=== PATIENT | female | born 1975 | race Caucasian/White ===

== ENCOUNTER → 2022-12-31 08:47 | Outpatient (BNVA) | payer OTHER, SELFPAY | PROVIDERS: PCP Family Medicine; Visit Provider Physician Assistant ==

== ENCOUNTER → 2023-01-09 08:30 | Outpatient (BNVA) | payer OTHER, SELFPAY | PROVIDERS: PCP Family Medicine; Visit Provider Surgery ==

== ENCOUNTER 2023-01-25 08:40 | Outpatient (REF) | payer OTHER, SELFPAY ==
--- NOTE | ~2023-01-25 | XR_ITS ---
EXAMINATION: XR CHEST CLINICAL INFORMATION: Obesity COMPARISON: None available. TECHNIQUE: 2 views of the chest were obtained. FINDINGS: No significant abnormality is noted involving the heart, lungs, mediastinum, bony thorax or soft tissues. XR/XR chest 2V IMPRESSION: Unremarkable examination.
--- NOTE | 2023-01-25 08:48 | ECG_ITS ---
Test Reason : OBESITY Blood Pressure : / mmHG Vent. Rate : 071 BPM Atrial Rate : 071 BPM P-R Int : 152 ms QRS Dur : 088 ms QT Int : 408 ms P-R-T Axes : 043 041 025 degrees QTc Int : 443 ms Normal sinus rhythm Normal ECG No previous ECGs available Referred By: Charlie Smith Electronically Signed By:REYNALDO EMERY MD
[2023-01-25 09:03] LABS: MANUAL DIFF FLAG NO
[2023-01-25 09:31] LABS: Basophils Percent Auto 0.5 % (0-2); Eosinophils Absolute Auto 0.1 X10*3/uL (0.0-0.4); Eosinophils Percent Auto 1.5 % (0-4); Hematocrit 41.3 % (37.0-47.0); Hemoglobin 13.3 g/dl (12.0-16.0); Imm Gran Abs Auto 0.01 X10*3/uL (0.00-0.03); Imm Gran Pct Auto 0.2 % (0.0-0.4); Lymphocytes Absolute Auto 1.8 X10*3/uL (1.2-4.9); Lymphocytes Percent Auto 33.5 % (20-40); Mean Corpuscular HGB Conc 32.2 g/dl (31.0-35.0); Mean Corpuscular Hemoglobin 27.4 pg (27.0-33.0); Mean Platelet Volume 9.1 fL (9.4-12.3); Monocytes Absolute Auto 0.4 X10*3/uL (0.1-1.2); Monocytes Percent Auto 6.4 % (2-11); Neutrophils Absolute Auto 3.2 x10*3/uL (2.0-8.3); Neutrophils Percent Auto 57.9 % (45-73); Platelet Count 306 X10*3/uL (160-400); Red Blood Count 4.86 X10*6/uL (4.20-5.50); White Blood Count 5.5 X10*3/uL (4.8-10.8)
[2023-01-25 10:12] LABS: Estimated Average Glucose 103 mg/dL; Hemoglobin A1c % 5.2 %
[2023-01-25 10:22] LABS: Alanine Aminotransferase 33 U/L (0-31); Albumin Level 4.3 g/dL (3.5-5.0); Alkaline Phosphatase 75 U/L (39-117); Anion Gap 14 (12-20); Aspartate Amino Transferase 32 U/L (5-31); Bilirubin Total 0.4 mg/dL (0.0-1.0); Blood Urea Nitrogen 14 mg/dL (9-16); C Reactive Protein 0.79 mg/dL (< or = 0.50); Calcium 9.4 mg/dL (8.4-10.2); Carbon Dioxide 26 mmol/L (22-29); Chloride 103 mmol/L (96-108); Cholesterol 181 mg/dL; Estimated Glomerular Filt Rate > 60; Glucose Random 88 mg/dL (60-115); HDL Cholesterol 58 mg/dL; Iron 61 mcg/dL (30-160); LDL Cholesterol Calculated 105 mg/dl; Percent Iron Saturation 14 % (15-50); Potassium 3.6 mmol/L (3.3-5.1); Sodium 139 mmol/L (135-145); Total Iron Binding Capacity 429 mcg/dL (228-428); Total Protein 7.8 g/dL (6.5-8.0); Triglycerides 94 mg/dL; Unsaturated Iron Binding 368 ug/dL
[2023-01-25 10:38] LABS: Ferritin 21 ng/mL (10-250); TSH reflex Free T4 1.89 uIU/mL (0.32-4.0)
[2023-01-25 10:47] LABS: Folate 17.8 ng/mL (> or = 4.0); Insulin 6 uU/mL (2-29); Vitamin B12 1292 pg/mL (200-900)
[2023-01-30 03:44] LABS: Zinc 78 mcg/dL (60-130)
[2023-01-30 14:18] LABS: Calcium (PTHI) 8.7 mg/dL (8.6-10.2); PTHI 58 pg/mL (16-77)
[2023-01-31 01:23] LABS: Vitamin A 50 mcg/dL (38-98)
[2023-02-02 12:48] LABS: Vitamin B1 61 nmol/L (8-30)
== END 2023-01-25 08:41 | disposition home or self-care (01) ==
LOC: HO.XRAY 08:40
PROVIDERS: Visit Provider Surgery
DX: E03.9 Hypothyroidism, unspecified (principal); E66.01 Morbid (severe) obesity due to excess calories; K21.9 Gastro-esophageal reflux disease without esophagitis
CPT/HCPCS: 36415; 71046; 80053; 80061; 82306; 82607; 82728; 82746; 83036; 83525; 83540; 83970; 84425; 84443; 84590; 84630; 85025; 86140; 93005

== ENCOUNTER → 2023-01-28 08:24 | Outpatient (BNVA) | payer OTHER, SELFPAY | PROVIDERS: Visit Provider Surgery ==

== ENCOUNTER → 2023-02-11 08:30 | Outpatient (BNVA) | payer OTHER, SELFPAY | PROVIDERS: Visit Provider Counselor Mental Health ==

== ENCOUNTER 2023-02-22 11:06 | Outpatient (REF) | payer OTHER, SELFPAY ==
[2023-02-25 14:26] LABS: H Pylori Breath Test Negative (Negative)
== END 2023-02-22 11:07 | disposition home or self-care (01) ==
LOC: HO.LNP 11:06
PROVIDERS: Visit Provider Surgery
DX: E66.01 Morbid (severe) obesity due to excess calories (principal); K21.9 Gastro-esophageal reflux disease without esophagitis; E03.9 Hypothyroidism, unspecified
CPT/HCPCS: 83013

== ENCOUNTER 2023-03-01 12:00 | Outpatient (AMB) | payer OTHER, SELFPAY ==
--- NOTE | 2023-03-01 12:10 | A.OFFVIS_ITS ---
Intake VS Expanded 03/01/23 12:16 Height 4 ft 11.5 in Weight 215 lb 9.6 oz BMI 42.8 Intake Visit Reasons: VIDEO F/U SWL Cellulose Insulation Helper Required: No Allergies amoxicillin Allergy (Mild, Verified 01/09/23 08:24) Hives Medication List - Last Reconciled 03/01/23 by SIMÓN Mckenzie amitriptyline 20 mg PO BEDTIME cetirizine (Zyrtec) 10 mg PO DAILY PRN famotidine (Pepcid) 40 mg PO BEDTIME ibuprofen 200 mg PO Q6H PRN levothyroxine 137 mcg PO DAILY [VITAMIN B PO] HPI HPI Comments History of Present Illness Details 47 yo female returns to clinic for SWL pre-op planning Initial weight was 225.4 pounds on 01/09/23 Weight today 215.6 with a BMI of 42.8 Weight loss 9.8 pounds and 4.3 % TBWL. She states she is drinking the shakes over a day. She is not eating both bars, she is just having 1/4 or so per day. She continues with the meal at night. She is having between 8-10 forks per meal. She was on vacation in [place] all inclusive and didn't follow any plan. Meal plan: 2 Orgain protein shakes (1 scoop each in almond milk), 2 Zone Perfect protein bars and one meal (8 forkfuls of protein and 8 forkfuls of vegetables) exercise plan: nothing PFSH Medical History DJD (degenerative joint disease) GERD (gastroesophageal reflux disease) Hypothyroidism Morbid obesity Surgical History Hx of section Hx of tubal ligation Family History Mother Cancer Father Hypertension High cholesterol Brother No problems noted. Son No problems noted. Daughter No problems noted. Social History Alcohol intake: current Alcohol intake frequency: holidays/special occasions only Patient Tobacco Use Status: Never used Tobacco Assessment & Plan Assessment & Plan (1) Morbid obesity: Code(s): E66.01 - Morbid (severe) obesity due to excess calories Plan: encouraged to follow meal plan 2 plant-based organic ORGAIN protein shakes (ONE scoop EACH in 8oz low fat unsweetened almond milk each) at 8am-10am and 12pm-2pm, 1 protein bar (Zone Perfect protein bars) at 4pm-6pm, dinner at 7pm (8 forks of protein and 8 forks of salad/vegetables) Encouraged to start exercising, anything Walking, honme videos, offered discount paper for [employer] Reminded of tracking calories 300 daily is goal rtc as scheduled Telehealth Telehealth Location of provider rendering services: practice address Location of patient: address on file Patient Identification confirmed using: Name, : Yes Telehealth method: video Patient verbally consented to treatment: Yes Patient verbally consented to billing insurance company: Yes Patient informed of any privacy concerns related to visit: Yes Minutes spent on Phone/Video with Pt.: 18 Coding Level of Care Code Tele Est Pt Level 3 (17488) Diagnoses Morbid obesity E66.01 Time Spent (min) 20
[2023-03-01 12:16] VITALS: BMI 42.8
== END 2023-03-01 12:45 | disposition home or self-care (01) ==
LOC: HO.HBS 12:20
PROVIDERS: Visit Provider Physician Assistant Surgical
DX: E66.01 Morbid (severe) obesity due to excess calories (principal); Z68.41 Body mass index [BMI] 40.0-44.9, adult
CPT/HCPCS: 99213

== ENCOUNTER → 2023-03-01 12:00 | Outpatient (BNVA) | payer OTHER, SELFPAY | PROVIDERS: Visit Provider Physician Assistant Surgical ==

== ENCOUNTER 2023-03-11 08:58 | Outpatient (AMB) | payer OTHER, SELFPAY ==
--- NOTE | 2023-03-11 08:32 | MHC.AMNUTRGE ---
Intake Intake Visit Reasons: VIDEO Initial Nutrition [facility] Clinical Services Director Required: No Allergies amoxicillin Allergy (Mild, Verified 01/09/23 08:24) Hives HPI Nutrition Presentation Details [employer] weight (01/09/23) 225# current weight 214# Reason for consult elevated BMI Diet Assmnt Details reports she isn't very consistent with the nutrition plan - especially on the weekends and any time her routine is off. during the weekdays, does very well and likes the convenience of the shakes/bars. im a foodie , likes to go out on the weekends to restaurants. prefers the shakes over the bars. exercise: purchased an elliptical but hasn't been assembled yet. She is excited about using it. [facility] online classes: completed. scored well. no questions Dietary counseling reduction Diagnosis Nutrition problem #1 overweight/obesity As related to (etiology) #1 excess energy intake and physical inactivity As evidenced by (sign/symptom) #1 high BMI Monitoring/Goals Nutrition problem monitoring total energy intake, level of knowledge/skill, total PRO intake, total CHO intake, weight and oral fluids Outcome progress progressing Learning/Education Readiness to learn good Stages of change action Most Recent Diabetes Results: Cholesterol 181 mg/dL 01/25/23 HDL Cholesterol 58 mg/dL 01/25/23 Triglycerides 94 mg/dL 01/25/23 Creatinine 0.91 mg/dL (0.5-1.4) 01/25/23 Blood Urea Nitrogen 14 mg/dL (9-16) 01/25/23 Sodium 139 mmol/L (135-145) 01/25/23 Potassium 3.6 mmol/L (3.3-5.1) 01/25/23 Chloride 103 mmol/L (96-108) 01/25/23 Carbon Dioxide 26 mmol/L (22-29) 01/25/23 Calcium 9.4 mg/dL (8.4-10.2) 01/25/23 AST 32 U/L (5-31) H 01/25/23 ALT 33 U/L (0-31) H 01/25/23 Total Protein 7.8 g/dL (6.5-8.0) 01/25/23 Albumin 4.3 g/dL (3.5-5.0) 01/25/23 [facility] Medical History DJD (degenerative joint disease) GERD (gastroesophageal reflux disease) Hypothyroidism Morbid obesity Surgical History Hx of section Hx of tubal ligation Family History Mother Cancer Father Hypertension High cholesterol Brother No problems noted. Son No problems noted. Daughter No problems noted. Social History Alcohol intake: current Alcohol intake frequency: holidays/special occasions only Patient Tobacco Use Status: Never used Tobacco Assessment & Plan Assessment & Plan (1) Morbid obesity: Code(s): E66.01 - Morbid (severe) obesity due to excess calories Patient Instructions: Patient is cleared from a nutrition standpoint for bariatric surgery.? Educational requirements have been completed.? Reviewed vitamin supplementation and commitment to protein shake for several months post surgery.? Encouraged communication with office as needed Telehealth Telehealth Location of provider rendering services: other (home address) Location of patient: address on file Patient Identification confirmed using: Name, : Yes Telehealth method: voice only Patient verbally consented to treatment: Yes Patient verbally consented to billing insurance company: Yes Patient informed of any privacy concerns related to visit: Yes Minutes spent on Phone/Video with Pt.: 25 Coding Level of Care Code Nutr Indiv Intake (17412) Diagnoses Morbid obesity E66.01 Time Spent (min) 25
== END 2023-03-11 08:59 | disposition home or self-care (01) ==
LOC: HO.HBS 08:58
PROVIDERS: Visit Provider Dietitian, Registered
DX: E66.01 Morbid (severe) obesity due to excess calories (principal)

== ENCOUNTER → 2023-03-11 08:58 | Outpatient (BNVA) | payer OTHER, SELFPAY | PROVIDERS: Visit Provider Dietitian, Registered | DX: E66.01 Morbid (severe) obesity due to excess calories (principal); K21.9 Gastro-esophageal reflux disease without esophagitis; E03.9 Hypothyroidism, unspecified; Z71.3 Dietary counseling and surveillance | CPT/HCPCS: 97802 ==

== ENCOUNTER 2023-03-25 08:13 | Outpatient (AMB) | payer OTHER, SELFPAY ==
--- NOTE | 2023-03-25 08:43 | MHC.OFFVISWM ---
Intake VS Expanded 03/25/23 09:20 Height 4 ft 11.5 in Weight 213 lb 2 oz BMI 42.3 Body Fat 119.8 Body Fat Percentage 56.2 Free Fat Mass 93.4 Visceral Mass 24 Water Mass 63.9 BMR 1,273 Intake Visit Reasons: TV Follow Up SWL Allergies amoxicillin Allergy (Mild, Verified 01/09/23 08:24) Hives HPI TV Follow Up SWL HPI Details Start time: 8.40am, End time: 9.10am ?I spent 25 minutes speaking with the patient on the phone plus an additional 5 minutes reviewing and updating records for a total of 30 minutes HPI Comments History of Present Illness Details Overall weight loss: 12.2lbs, or 5.41% TBWL Weekdays: is doing Orgain (2 scoops in 16oz almond milk), one Zone Perfect protein bar, and one meal (unmeasured food portions) Weekends: no plan on weekends Exercise: is doing Elliptical and walking outside [facility] Medical History DJD (degenerative joint disease) GERD (gastroesophageal reflux disease) Hypothyroidism Morbid obesity Surgical History Hx of section Hx of tubal ligation Family History Mother Cancer Father Hypertension High cholesterol Brother No problems noted. Son No problems noted. Daughter No problems noted. Social History Alcohol intake: current Alcohol intake frequency: holidays/special occasions only Patient Tobacco Use Status: Never used Tobacco Assessment & Plan Assessment & Plan (1) Morbid obesity: Code(s): E66.01 - Morbid (severe) obesity due to excess calories Plan: 1. Change nutritional plan to: a) WEEKDAYS: one Orgain protein shake (1 scoop in 8oz almond milk) at 8-10am and 4 Zone Perfect protein bars at 11-1, 2-4pm, 5-7pm and 8pm-10pm. b) WEEKENDS: two Orgain protein shakes (HALF scoop each in 8oz almond milk each) at 8-10am and 11-1pm, one Zone Perfect protein bar at 2pm-4pm, dinner at 5pm-6pm (8 forks of meat and 8 forks of salad or vegetables) and one more Zone Perfect protein bar at 7pm-9pm 2. Each shake would be drunk slowly, like coffee in a period of 2 hours. 3. Cut each bar in 4 pieces and eat each piece in 30min to make each bar last 2 hours. 4. Take the Phentermine daily 11am. 5. If you eat a dinner, I emphasized the importance of measuring accurately the food portion and measure it when serving the food in plate. 6. Send me weight measurement on Wednesdays 7. Start Elliptical with an incline of 2.0 and resistance of 4.0. Increase resistance by 1 every 3 min to a max resistance of 10.0, and repeat cycles for 300 calories. 8. Start walking fast pace for one hour at least 2 days per week as possible and measure distance and calories. Send me the calories and distance from your health watch before and after the walk. Try to increase distance walked at the same time over time or use ankle weights and try to walk same distance with ankle weights burning more calories. Record these numbers so we can re-assess activity level at every follow-up visit. Goal is to burn 2000 calories per week on exercise, which means either 300 calories daily, or 400 calories 5 days per week, or 500 calories 4 days per week, or 650 calories 3 days per week. 9. We discussed the potential side-effects of the Phentermine such as irritability, dry mouth, difficulty sleeping, dizziness, numbness in feet and high blood pressure. I asked her to get a blood pressure monitor and measure the blood pressure daily in the morning and evening. She needs to send the blood pressure readings daily and to call the office for blood pressure over 140/80 and she understands that. Telehealth Telehealth Location of provider rendering services: practice address Location of patient: address on file Patient Identification confirmed using: Name, : Yes Telehealth method: voice only Patient verbally consented to treatment: Yes Patient verbally consented to billing insurance company: Yes Patient informed of any privacy concerns related to visit: Yes Minutes spent on Phone/Video with Pt.: 30 Coding Level of Care Code Tele Est Pt Level 4 (03609) Diagnoses Morbid obesity E66.01 Time Spent (min) 30
[2023-03-25 09:20] VITALS: BMI 42.3
== END 2023-03-25 09:31 | disposition home or self-care (01) ==
LOC: HO.HBS 08:13
PROVIDERS: Visit Provider Surgery
DX: E66.01 Morbid (severe) obesity due to excess calories (principal); Z68.41 Body mass index [BMI] 40.0-44.9, adult
CPT/HCPCS: 99214

== ENCOUNTER → 2023-03-25 08:13 | Outpatient (BNVA) | payer OTHER, SELFPAY | PROVIDERS: Visit Provider Surgery ==

== ENCOUNTER 2023-03-27 08:25 | Outpatient (REF) | payer OTHER, SELFPAY ==
--- NOTE | ~2023-03-27 | FL_ITS ---
EXAMINATION: XR FLUOROSCOPY UPPER GI WITH AIR CLINICAL INFORMATION: Obesity COMPARISON: None available. TECHNIQUE: Upper GI was performed using thin and thick barium and effervescent granules FINDINGS: Esophageal motility is normal. No gastroesophageal reflux is seen. No significant hernia is seen. The stomach and duodenum are normal. No fold thickening, mass, ulcer or stricture is seen. FLUOROSCOPY TIME: 0.4 minutes DOSE AREA PRODUCT: 5.5 oliveira per centimeter squared. Total dose 20 mgy. 15 saved fluoroscopic images. FL/FL upper GI w air IMPRESSION: Unremarkable examination.
--- NOTE | ~2023-03-27 | US_ITS ---
EXAMINATION: US COMPLETE ABDOMEN WITH LIVER ELASTOGRAPHY CLINICAL INFORMATION: Morbid (severe) obesity. COMPARISON: None available. TECHNIQUE: Real-time imaging of the abdominal viscera. Noninvasive ultrasound liver fibrosis assessment is performed using Dmitriy ElastPQ point quantification shear wave elastography (2D-SWE) with a C5-2 MHz transducer. Multiple elastography samples are obtained. FINDINGS: PANCREAS: Normal. ABDOMINAL AORTA: The proximal, middle, and distal aortic segments are normal in caliber. INFERIOR VENA CAVA: Visualized portions are normal. LIVER: Liver has normal size and contour. No cirrhotic morphology or focal liver lesion. The parenchyma appears to be diffusely hyperechoic. The right hepatic lobe measures 16.6 cm in length. Color Doppler images with spectral waveforms show presence of normal flow within the main portal vein. Shear wave liver elastography median stiffness is 1.19 m/s (reference: normal median stiffness is 1.3 m/s or less). IQR/median stiffness to assess sampling precision is 0.06 (reference: good quality data set is IQR/median stiffness of 0.15 or less). GALLBLADDER: The gallbladder is physiologically distended without evidence of stones, sludge, wall thickening or pericholecystic fluid. A small 0.2 cm polyp or focus of adenomyomatosis with comet tail artifact of the anterior gallbladder wall is noted. COMMON BILE DUCT: Normal in caliber measuring 0.3 cm in diameter. RIGHT KIDNEY: Normal. No hydronephrosis. No renal calculi or focal parenchymal lesions. The kidney measures 11.1 cm in maximum dimension. LEFT KIDNEY: Normal. No hydronephrosis. No renal calculi or focal parenchymal lesions. The kidney measures 10 cm in maximum dimension. SPLEEN: Normal. The spleen measures 10.5 cm in maximum dimension. FREE FLUID: None. US/US abdomen comp w elastography IMPRESSION: Liver is diffusely hyperechoic which suggests presence of steatosis. However, the liver elastography is in normal range. The shear wave liver elastography median stiffness is 1.19 m/s (reference: normal median stiffness is 1.3 m/s or less). REFERENCE: Society of Radiologists in Ultrasound Liver Stiffness Thresholds (2020): LIVER STIFFNESS THRESHOLDS: *Liver Stiffness equal or less than 1.3 m/s: High probability of being normal. *Liver Stiffness less than 1.7 m/s: In the absence of other known clinical signs, rules out compensated advanced chronic liver disease. *Liver Stiffness 1.7-2.1 m/s: Suggestive of compensated advanced chronic liver disease but need further test for confirmation. *Liver Stiffness over 2.1 m/s: Rules in compensated advanced chronic liver disease. *Liver Stiffness over 2.4 m/s: Suggestive of clinically significant portal hypertension. QUALITY OF DATA SET: *IQR/Median value equal or less than 0.15 implies a quality data set. *IQR/Median value over 0.15 implies a poor quality data set. SIGNIFICANT CHANGE FROM PRIOR EXAM: Significant change if liver stiffness measurement is 10% or greater from prior exam. OTHER CONSIDERATIONS: The stage of liver fibrosis may be overestimated in the setting of acute hepatitis, liver inflammation, elevated liver function tests, hepatic vascular congestion, obstructive cholestasis, non-fasting state, and infiltrative diseases such as amyloidosis and lymphoma. In some patients with NAFLD, the liver stiffness thresholds for compensated advanced chronic liver disease may be lower. In causes other than viral hepatitis and NAFLD, liver stiffness thresholds are not well established.
== END 2023-03-27 08:26 | disposition home or self-care (01) ==
LOC: HO.XRAY 08:25
PROVIDERS: Visit Provider Surgery
DX: E03.9 Hypothyroidism, unspecified (principal); E66.01 Morbid (severe) obesity due to excess calories; K21.9 Gastro-esophageal reflux disease without esophagitis
CPT/HCPCS: 74246; 76705; 76981

== ENCOUNTER → 2023-03-27 08:26 | Outpatient (BNV) | payer OTHER, SELFPAY | PROVIDERS: Visit Provider Radiology Diagnostic Radiology | DX: Z01.818 Encounter for other preprocedural examination (principal) | CPT/HCPCS: 74246 ==

== ENCOUNTER 2023-05-31 07:49 | Outpatient (AMB) | payer OTHER, SELFPAY ==
--- NOTE | 2023-05-31 12:31 | A.OFFVIS_ITS ---
Intake VS Expanded 05/31/23 12:32 Height 4 ft 11.5 in Weight 207 lb BMI 41.1 Body Fat % 54.3 Body Fat Mass 112.4 Fat Free Mass 94.6 Visceral Fat Rating 22 Body Water % 31.3 Body Water Mass 64.7 Basal Metabolic Rate/Score 1,280 Intake Visit Reasons: TV Follow Up SWL Allergies amoxicillin Allergy (Mild, Verified 01/09/23 08:24) Hives HPI TV Follow Up SWL HPI Details Start time: 12.12pm, End time: 12.42pm ?I spent 25 minutes speaking with the patient on the phone plus an additional 5 minutes reviewing and updating records for a total of 30 minutes HPI Comments History of Present Illness Details Overall weight loss: 18.4lbs, or 8.16% TBWL Weekdays: is doing Orgain (2 scoops in 16oz almond mil k), one Zone Perfe ct protein bar, an d one meal Exerci se: is doing Ellip tical and walking outside [facility] Medical History DJD (degenerative joint disease) GERD (gastroesophageal reflux disease) Hypothyroidism Morbid obesity Surgical History Hx of section Hx of tubal ligation Family History Mother Cancer Father Hypertension High cholesterol Brother No problems noted. Son No problems noted. Daughter No problems noted. Social History Alcohol intake: current Alcohol intake frequency: holidays/special occasions only Patient Tobacco Use Status: Never used Tobacco Assessment & Plan Assessment & Plan (1) Morbid obesity: Code(s): E66.01 - Morbid (severe) obesity due to excess calories Plan: 1. Plan for lap sleeve gastrectomy including upper GI endoscopy. All tests has been completed and reviewed and the patient is cleared for the surgery. ?If diaphragmatic or ventral hernias are present at time of surgery, these will be repaired laparoscopically as well. Risks and complications were discussed in detail including possible conversion to an open procedure, anastomotic leak, bleeding requiring transfusion, small bowel obstruction, , DVT and pulmonary embolism, cardiac, or pulmonary complications, as care home complications such as anastomotic ulcer, insufficient weight loss and vitamin deficiencies. I emphasized the importance of close follow-up, adherence to instructions and good communication. So far she has proven to be an excellent communicator and very compliant with all our directions accomplishing a great weight loss. I believe that she is an excellent candidate and she is ready. 2. Continue same nutritional plan of one Orgain (HALF scoop in 8oz almond milk) at 7am-9am, three Zone Perfect protein bars at 10am-12pm, 1pm-3pm and 4pm-6pm, and one meal at 7pm (8 forks of protein and 8 forks of salad or vegetables). If hungry later, do another Orgain shake with HALF scoop at 9pm-11pm. Exercise: Elliptical for 300 calories per day, daily. Goal is to burn 2000 calories per week on the Elliptical Telehealth Telehealth Location of provider rendering services: practice address Location of patient: address on file Patient Identification confirmed using: Name, : Yes Telehealth method: voice only Patient verbally consented to treatment: Yes Patient verbally consented to billing insurance company: Yes Patient informed of any privacy concerns related to visit: Yes Minutes spent on Phone/Video with Pt.: 30 Coding Level of Care Code Tele Est Pt Level 4 (06941) Diagnoses Morbid obesity E66.01 Time Spent (min) 30
[2023-05-31 12:32] VITALS: BMI 41.1
== END 2023-05-31 12:43 | disposition home or self-care (01) ==
LOC: HO.HBS 07:49
PROVIDERS: Visit Provider Surgery
DX: E66.01 Morbid (severe) obesity due to excess calories (principal); Z68.41 Body mass index [BMI] 40.0-44.9, adult
CPT/HCPCS: 99214

== ENCOUNTER → 2023-05-31 07:49 | Outpatient (BNVA) | payer OTHER, SELFPAY | PROVIDERS: Visit Provider Surgery ==

== ENCOUNTER 2023-06-28 08:15 | Outpatient (AMB) | payer OTHER, SELFPAY ==
--- NOTE | 2023-06-28 12:01 | A.OFFVIS_ITS ---
Intake VS Expanded 06/28/23 12:10 Height 4 ft 11.5 in Weight 203 lb 2 oz BMI 40.3 Body Fat % 53.2 Body Fat Mass 108.1 Fat Free Mass 95.2 Visceral Fat Rating 22 Body Water % 32.1 Body Water Mass 65.2 Basal Metabolic Rate/Score 1,298 Intake Visit Reasons: TV Pre Op LSG 07/16/23 Allergies amoxicillin Allergy (Mild, Verified 06/28/23 12:01) Hives Medication List - Last Reconciled 06/28/23 by Charlie Smith MD amitriptyline 25 mg PO BEDTIME cetirizine (Zyrtec) 10 mg PO DAILY PRN famotidine (Pepcid) 40 mg PO BEDTIME PRN ibuprofen 200 mg PO Q6H PRN levothyroxine 137 mcg PO BEDTIME ondansetron 4 mg PO Q12H pantoprazole 40 mg PO DAILY polyethylene glycol 3350 (Miralax) 17 grams PO DAILY sucralfate 10 mL PO BID HPI TV Pre Op LSG 07/16/23 HPI Details Start time: 11.58am, End time: 12.18pm ?I spent 15 minutes speaking with the patient on the phone plus an additional 5 minutes reviewing and updating records for a total of 20 minutes HPI Comments History of Present Illness Details Overall weight loss: 22.2lbs, or 9.85% TBWL Is doing 2 Orgain protein shakes (1 scoop each in 8oz almond milk), 2 Zone Perfect protein bars and a meal (4 forks of protein Exercise: is doing Elliptical 2/week PFSH Medical History (Updated 06/27/23 @ 08:32 by Swetha Ariza RN) PONV (postoperative nausea and vomiting) Fatty liver Bronchitis Hypothyroidism GERD (gastroesophageal reflux disease) DJD (degenerative joint disease) Morbid obesity Surgical History (Updated 06/27/23 @ 08:29 by Swetha Ariza RN) Hx of tubal ligation Hx of section Family History Mother Cancer Father Hypertension High cholesterol Brother No problems noted. Son No problems noted. Daughter No problems noted. Social History Are you a primary patient care technician instructor to a significant other at home: No Do you presently have visiting nurse or other home services: No Alcohol intake: current Alcohol intake frequency: holidays/special occasions only Patient Tobacco Use Status: Never used Tobacco Assessment & Plan Assessment & Plan (1) Morbid obesity: Code(s): E66.01 - Morbid (severe) obesity due to excess calories Plan: 1. Plan for lap sleeve gastrectomy including upper GI endoscopy. All tests has been completed and reviewed and the patient is cleared for the surgery. ?If diaphragmatic or ventral hernias are present at time of surgery, these will be repaired laparoscopically as well. Risks and complications were discussed in detail including possible conversion to an open procedure, anastomotic leak, bleeding requiring transfusion, small bowel obstruction, , DVT and pulmonary embolism, cardiac, or pulmonary complications, as fdc complications such as anastomotic ulcer, insufficient weight loss and vitamin deficiencies. I emphasized the importance of close follow-up, adherence to instructions and good communication. So far she has proven to be an excellent communicator and very compliant with all our directions accomplishing a great weight loss. I believe that she is an excellent candidate and she is ready. 2. Preop prescriptions were provided and explained the purpose of each one. Need to be purchased preop. Start Pantoprazole now as you get it from the pharmacy, 1 pill per day. Sucralfate and Zofran are for after surgery as needed. 3. Bowel prep: please do 7 packets ?of Miralax mixing each one with a an 8oz glass of water, crystal light, gatorade zero, or propel ?on 07/14/23 and the same amount on 07/15/23. Continue the protein shakes during? the bowel prep. 4. Needs to purchase 1oz medicine cups . 5. Needs to purchase Children's liquid Tylenol for postop pain control. 6. She needs to stop the ibuprofen. Avoid aspirin, motrin, Advil, Aleve, Meloxi cam, Naproxyn. Tylenol is OK. 7. She needs to purchase the Celebrate 4:1 protein shakes from the hospital's gift shop. 8. Will do basic preop blood work-up any day between Saturday07/08/23 and Saturday07/12/23 fasting for 12 hours and is scheduled to see the Anesthesiologist prior to the day of surgery. 9. Importance of adherence to postop folllow-up and recommendations was underscored and she understands that. 10. Stop food and bars as of Saturday07/01/23 (except from ) and continue with 4 Orgain protein shakes (ONE scoop EACH in 8oz almond milk) at 7am-9am, 10am-12pm, 1pm-3pm, 4pm-6pm and one more Orgain protein shake with TWO scoops in 8oz of almond milk at 7pm-9pm 11. No soups, broths or V8 12. The patient's?medical?history has been reviewed and they are considered low risk for post op DVT and therefore DVT prophylaxis is not considered necessary. Travel after surgery was reviewed. The patient has not disclosed any travel plans during the first 30 days after surgery and they have been advised that within the first 30 days after surgery any bus, plane, train or car travel over 2 hours in duration is contraindicated due to the possibility of developing blood clots from immobility. Any travel, needs to include periods of ambulation of 10 minutes in duration every 2 hours.? Patient was instructed to discuss any plans for travel during this period with their bariatric surgeon.? 13. Please take at the day of surgery the following medications: NONE 14. Stop any control pills and don't use them for one month after surgery 15. Absolutely no smoking or vaping, or marijuana until the surgery and for at least the first 4 weeks. Only nicotine patches are allowed. 16. Send me weight measurements on and then on Saturday07/16/23 the day of surgery before you go to the hospital. 17. Avoid any steroids by mouth for any reason. Let me know if someone prescribes them to you Orders: Orders Type and Screen Today E03.9 - Hypothyroidism, unspecified, E66.01 - Morbid (severe) obesity due to excess calories Partial Thromboplastin Time Today E03.9 - Hypothyroidism, unspecified, E66.01 - Morbid (severe) obesity due to excess calories Comprehensive Met. Panel Today E03.9 - Hypothyroidism, unspecified, E66.01 - Morbid (severe) obesity due to excess calories TSH reflex Free T4 Today E03.9 - Hypothyroidism, unspecified, E66.01 - Morbid (severe) obesity due to excess calories Prothrombin Time INR Today E03.9 - Hypothyroidism, unspecified, E66.01 - Morbid (severe) obesity due to excess calories Hemoglobin A1c Today E03.9 - Hypothyroidism, unspecified, E66.01 - Morbid (severe) obesity due to excess calories Lipid Panel Today E03.9 - Hypothyroidism, unspecified, E66.01 - Morbid (severe) obesity due to excess calories C Reactive Protein Today E03.9 - Hypothyroidism, unspecified, E66.01 - Morbid (severe) obesity due to excess calories Complete Blood Count Auto Diff Today E03.9 - Hypothyroidism, unspecified, E66.01 - Morbid (severe) obesity due to excess calories Insulin Today E03.9 - Hypothyroidism, unspecified, E66.01 - Morbid (severe) obesity due to excess calories Medications: New sucralfate 10 mL PO BID 400 mL 2RF K21.9 - Gastro-esophageal reflux disease without esophagitis ondansetron Only take one every 12 hours as needed if you have nausea 4 mg PO Q12H 20 tabs 0RF nausea and vomiting R11.0 - Nausea pantoprazole 40 mg PO DAILY 30 tabs 2RF K21.9 - Gastro-esophageal reflux disease without esophagitis polyethylene glycol 3350 (Miralax) Mix each packet with 8oz of water, Crystal light, or Gatorade zero, or Propel and do 7 packets on 07/14/23 and another 7 packets on 23 17 grams PO DAILY 14 ea 0RF Z01.818 - Encounter for other preprocedural examination Telehealth Telehealth Location of provider rendering services: practice address Location of patient: address on file Patient Identification confirmed using: Name, : Yes Telehealth method: voice only Patient verbally consented to treatment: Yes Patient verbally consented to billing insurance company: Yes Patient informed of any privacy concerns related to visit: Yes Minutes spent on Phone/Video with Pt.: 20 Coding Level of Care Code Tele Est Pt Level 3 (38657) Diagnoses Morbid obesity E66.01 Time Spent (min) 20
[2023-06-28 12:10] VITALS: BMI 40.3
== END 2023-06-28 12:19 | disposition home or self-care (01) ==
LOC: HO.HBS 08:15
PROVIDERS: Visit Provider Surgery
DX: E66.01 Morbid (severe) obesity due to excess calories (principal)
CPT/HCPCS: 99213

== ENCOUNTER → 2023-06-28 08:15 | Outpatient (BNVA) | payer OTHER, SELFPAY | PROVIDERS: Visit Provider Surgery ==

== ENCOUNTER 2023-07-16 05:59 | Day surgery (SDC) | payer OTHER, SELFPAY ==
[2023-06-27 08:32] VITALS: BMI 41.1
[2023-07-08 10:23] LABS: MANUAL DIFF FLAG NO
[2023-07-08 11:05] LABS: Basophils Percent Auto 0.6 % (0-2); Eosinophils Absolute Auto 0.1 X10*3/uL (0.0-0.4); Eosinophils Percent Auto 1.9 % (0-4); Hematocrit 38.8 % (37.0-47.0); Hemoglobin 12.6 g/dl (12.0-16.0); Lymphocytes Absolute Auto 1.7 X10*3/uL (1.2-4.9); Lymphocytes Percent Auto 37.7 % (20-40); Mean Corpuscular HGB Conc 32.5 g/dl (31.0-35.0); Mean Corpuscular Hemoglobin 27.3 pg (27.0-33.0); Mean Corpuscular Volume 84.2 fL (80.0-98.0); Mean Platelet Volume 9.4 fL (9.4-12.3); Monocytes Absolute Auto 0.3 X10*3/uL (0.1-1.2); Monocytes Percent Auto 5.4 % (2-11); Neutrophils Absolute Auto 2.5 x10*3/uL (2.0-8.3); Neutrophils Percent Auto 54.4 % (45-73); Platelet Count 317 X10*3/uL (160-400); Red Blood Count 4.61 X10*6/uL (4.20-5.50); White Blood Count 4.6 X10*3/uL (4.8-10.8)
[2023-07-08 11:11] LABS: Estimated Average Glucose 105 mg/dL; Hemoglobin A1c % 5.3 % (<6.0)
[2023-07-08 11:42] LABS: Alanine Aminotransferase 16 U/L (0-31); Albumin Level 4.1 g/dL (3.5-5.0); Alkaline Phosphatase 76 U/L (39-117); Anion Gap 8 (12-20); Aspartate Amino Transferase 17 U/L (5-31); Bilirubin Total 0.3 mg/dL (0.0-1.0); Blood Urea Nitrogen 12 mg/dL (9-16); C Reactive Protein 0.25 mg/dL (< or = 0.50); Calcium 8.7 mg/dL (8.4-10.2); Carbon Dioxide 26 mmol/L (22-29); Chloride 109 mmol/L (96-108); Cholesterol 192 mg/dL (<200); Creatinine Clr Calc Pharmacy 80.8; Estimated Glomerular Filt Rate > 60; Glucose Random 93 mg/dL (60-115); HDL Cholesterol 59 mg/dL (>40); LDL Cholesterol Calculated 109 mg/dL (<100); Potassium 4.1 mmol/L (3.3-5.1); Sodium 139 mmol/L (135-145); Total Protein 7.4 g/dL (6.5-8.0); Triglycerides 122 mg/dL (<150)
[2023-07-08 11:44] LABS: INTERNATIONAL NORM RATIO 0.9 (0.9-1.1); Prothrombin Time 11.5 SEC (11.1-13.3)
[2023-07-08 11:47] LABS: Partial Thromboplastin Time 34.9 SEC (26.0-36.4)
[2023-07-08 12:00] LABS: Insulin 7 uU/mL (2-29); TSH reflex Free T4 0.73 uIU/mL (0.32-4.0)
--- NOTE | 2023-07-14 15:08 | P.HPSUR_ITS ---
Pre-Procedural Eval Section A Date of Service: 07/14/23 The patient is an INPATIENT: No The History & Physical has been completed within 30 days and I have reviewed it.: Yes Section B Chief Complaint: Morbid (severe) obesity due to excess calories Relevant Family History (Specify if Yes): No Relevant Social History: None Present Medications: None Medical History: No relevant PMH History of Previous Operations: No relevant previous surgery Allergies: Allergies Allergy/AdvReac Type Severity Reaction Status Date / Time amoxicillin Allergy Mild Hives Verified 06/28/23 12:01 Review of Systems Sugical H&P ROS: Negative: Constitution, Cardiovascular, Respiratory, Neurological, Psychiatric, Hem-Onc, Allergic/Immunologic, Gastrointestinal, Genitourinary, Musculoskeletal, Integumentary, Endocrine and Eyes/Ears/N ose/Throat Exam Surgical H&P Exam: Normal: HEENT, Normal: Heart, Normal: Lungs, Normal: Extremities, Normal: Abdomen, Normal: Skin and Normal: Neurological Plan Diagnosis/Plan: Unchanged I have reviewed the history and physical and performed a pertinent physical examination on my patient. No changes have occurred unless specified. Time Spent With Patient Time: Total time managing care of this patient today ____ minutes.
--- NOTE | 2023-07-15 10:17 | P.CONAN_ITS ---
Documented by User: Sharon Ovalle NP 07/15/23 10:18 HPI - Anesthesia Eval Consult details Narrative: 47yo F for Gastrectomy Sleeve,EGD,poss diaphragmatic hernia,poss ventral hernia,poss open, s/p tubal PMFSH Active Problems Active Problems: All Active Problems (Updated 06/27/23 @ 08:32 by Swetha Ariza RN) Adjustment disorder with anxiety (Acute) Hypothyroidism (Acute) GERD (gastroesophageal reflux disease) (Acute) DJD (degenerative joint disease) (Acute) Morbid obesity (Acute) Past Medical History Medical History PONV (postoperative nausea and vomiting) Fatty liver Bronchitis Hypothyroidism GERD (gastroesophageal reflux disease) DJD (degenerative joint disease) Morbid obesity Family History Family History Mother Cancer Father Hypertension High cholesterol Brother No problems noted. Son No problems noted. Daughter No problems noted. Surgical History Surgical History Hx of tubal ligation Hx of section Social History Social History Are you a primary healthcare advisory services manager to a significant other at home: No Do you presently have visiting nurse or other home services: No Alcohol intake: current Alcohol intake frequency: holidays/special occasions only Patient Tobacco Use Status: Never used Tobacco Use of substances other than those prescribed or required for medical reasons: No Are you DNR?: No Advance Directives: No (significant other is primary contact) Advance Directives Information Provided: Yes (brochure mailed) Advance Directives on File: No Recently lost weight without trying: No Eating poorly because of decreased appetite: No Nutrition Risks: No Nutritional Risk Patient : No FDLMP: 05/29/23 : No Poor oral hygiene: No Meds Allergies Allergy/AdvReac Type Severity Reaction Status Date / Time amoxicillin Allergy Mild Hives Verified 07/16/23 06:09 Home Medications Medication Instructions Recorded Confirmed Last Taken Type cetirizine 10 mg capsule (Zyrtec) 10 mg PO DAILY PRN Allergy Symptoms 12/31/22 07/16/23 Unknown History levothyroxine 137 mcg capsule 137 mcg PO BEDTIME 12/31/22 07/16/23 07/15/23 History ibuprofen 200 mg capsule 200 mg PO Q6H PRN Menstrual Cramps 01/09/23 07/16/23 06/29/23 History amitriptyline 25 mg tablet 25 mg PO BEDTIME 06/27/23 07/16/23 07/15/23 History Exam Height,Weight and Vital Signs: Height 4 ft 11.5 in Weight 93.894 kg Pertinent Lab Results Pertinent Lab Results: Laboratory Tests 07/08/23 07/08/23 10:17 10:22 WBC 4.6 L RBC 4.61 Hgb 12.6 Hct 38.8 MCV 84.2 MCH 27.3 MCHC 32.5 RDW 14.0 Plt Count 317 MPV 9.4 Immature Gran % (Auto) 0.0 Neut % (Auto) 54.4 Lymph % (Auto) 37.7 Warren % (Auto) 5.4 Eos % (Auto) 1.9 Baso % (Auto) 0.6 Lymph # (Auto) 1.7 Warren # (Auto) 0.3 Eos # (Auto) 0.1 Baso # (Auto) 0.0 Abs Immat Gran (auto) 0.00 Absolute Neuts (auto) 2.5 Absolute Nucleated RBC 0.000 Nucleated RBC % (auto) 0.0 PT 11.5 INR 0.9 APTT 34.9 Sodium 139 Potassium 4.1 Chloride 109 H Carbon Dioxide 26 Anion Gap 8 L BUN 12 Creatinine 0.88 Estim Creat Clear Calc 80.8 Estimated GFR > 60 Random Glucose 93 Estimat Average Glucose 105 Hemoglobin A1c % 5.3 Insulin Level 7 Calcium 8.7 D Total Bilirubin 0.3 AST 17 ALT 16 Alkaline Phosphatase 76 C-Reactive Protein 0.25 Total Protein 7.4 Albumin 4.1 Triglycerides 122 Cholesterol 192 LDL Cholesterol, Calc 109 H HDL Cholesterol 59 TSH 0.73 Blood Type B Positive Antibody Screen NEGATIVE Narrative Narrative: EKG 01/2023 Vent. Rate : 071 BPM Atrial Rate : 071 BPM P-R Int : 152 ms QRS Dur : 088 ms QT Int : 408 ms P-R-T Axes : 043 041 025 degrees QTc Int : 443 ms Normal sinus rhythm Normal ECG No previous ECGs available Assessment and Plan Assessment Anesthesia Assessment: Chart Reviewed Documented by User: Laina Kim MD 07/16/23 10:12 [facility] Past Medical History Medical History PONV (postoperative nausea and vomiting) Fatty liver Bronchitis Hypothyroidism GERD (gastroesophageal reflux disease) DJD (degenerative joint disease) Morbid obesity Family History Family History Mother Cancer Father Hypertension High cholesterol Brother No problems noted. Son No problems noted. Daughter No problems noted. Surgical History Surgical History Hx of tubal ligation Hx of section History of Problems with Anesthesia: No Social History Social History Are you a primary healthcare advisory services manager to a significant other at home: No Do you presently have visiting nurse or other home services: No Alcohol intake: current Alcohol intake frequency: holidays/special occasions o nly Patient Tobacco Use Status: Never used Tobacco Use of substances other than those prescribed or required for medical reasons: No Are you DNR?: No Advance Directives: No (significant other is primary contact) Advance Directives Information Provided: Yes (brochure mailed) Advance Directives on File: No Recently lost weight without trying: No Eating poorly because of decreased appetite: No Nutrition Risks: No Nutritional Risk Patient : No FDLMP: 05/29/23 : No Poor oral hygiene: No Meds Allergies Allergy/AdvReac Type Severity Reaction Status Date / Time amoxicillin Allergy Mild Hives Verified 07/16/23 06:09 Home Medications Medication Instructions Recorded Confirmed Last Taken Type cetirizine 10 mg capsule (Zyrtec) 10 mg PO DAILY PRN Allergy Symptoms 12/31/22 07/16/23 Unknown History levothyroxine 137 mcg capsule 137 mcg PO BEDTIME 12/31/22 07/16/23 07/15/23 History ibuprofen 200 mg capsule 200 mg PO Q6H PRN Menstrual Cramps 01/09/23 07/16/23 06/29/23 History amitriptyline 25 mg tablet 25 mg PO BEDTIME 06/27/23 07/16/23 07/15/23 History Exam Airway Mallampati Class: II TM Dist: >3cm Neck ROM: Full Loose/Missing/Broken Teeth: No Heart: RRR Lungs: CTA Assessment and Plan Assessment Anesthesia Assessment: Anesthesia Plan Discussed Final Anesthetic Review History of Problems with Anesthesia: No NPO: Yes ASA Class: III Final Preanesthetic Review: Meds/Allgs Chart Reviewed, Consent Obtained/Reviewed and Anes Risks/Benef Reviewed Patient Risk: Intermediate Procedure Risk: Intermediate Anesthetic Plan Anesthetic Plan: GA Disposition: Standard PACU
[2023-07-16] VITALS (19 sets, daily range): BP systolic 121–140; BP diastolic 64–88; PULSE 68–91; RESP 12–18; TEMP 36.2–36.9; O2SAT 93–99; BMI 40.4
[2023-07-16] MEDS: Aprepitant 32 MG/4.4 ML VIAL IVPUSH (06:58)
[2023-07-16] MEDS: Lactated Ringers 1,000 ML 100 ML IVCONT ×3 (06:58→23:13)
[2023-07-16] MEDS: Lactated Ringers 1,000 ML 999 ML IV (07:02)
--- NOTE | 2023-07-16 07:45 | P.BOP_ITS ---
Brief Operative Note Date of Service: 07/16/23 Pre-op diagnosis: Severe obesity with comorbidities (see below) Post-op diagnosis: same Procedure: INITIAL PATIENT BMI ON PRESENTATION AT OUR OFFICE: 44.8 kg/m2 LAST BMI BEFORE SURGERY: 39.9 kg/m2 COMORBIDITIES: hypothyroidism, GERD, DJD, insomnia, liver steatosis, liver fibrosis ?The patient presented to the Weight Management Program with significant obesity that was negatively impacting the patient's comorbidities as listed above.? The program is a phased program with a special focus on preoperative medical weight management to promote substantial weight loss and prepare the patients for the second phase of the program: bariatric surgery. The patient participated in an intensive weekly lifestyle ?intervention and exercise program during which the patient ?has lost between the initial office visit and the last preoperative visit 24.6lbs, or 10.91% of initial actual body weight. It was deemed appropriate for the patient to now have bariatric surgery. In light of the current Covid-19 pandemic and the well documented strong association of obesity and increased risk of worse outcomes if infected with Covid-19 (REFERENCES: https://pubmed.ncbi.nlm.nih.gov/38012113/ ,? https://pubmed.ncbi.nlm.nih.gov/15021198/ ), any delay in undergoing bariatric surgery may lead to the patient's worsening health condition and increased?risk of more severe Covid-19 disease if infected. In addition a recent?study from [facility] published in [employer] on 08/07/2021 ([email or web address]) found that, among patients with obesity, substantial weight loss achieved with surgery was associated with improved outcomes of COVID-19 infection. The findings suggest that obesity can be a modifiable risk factor for the severity of COVID-19 infection. In addition, the patient met the BMI-criteria for bariatric surgery based on the BMI on initial presentation. The patient should not be penalized for achieving such weight loss because ?it is not sustainable long-term without surgical intervention and it was achieved in preparation for bariatric surgery ?under my direction and based on my published research ([email or web address] and? https://www.soard.org/article/V2532-0410(69)49041-X/pdf ) ?that a 10% preopera tive weight loss improves long-term weight loss after surgery and reduces perioperative complications.? Insurance carriers such as [facility] have endorsed my recommendations ?and have included in their policies criteria to include a 10% preoperative weight loss requirement. PROCEDURE: Esophago-gastroscopy, laparoscopic sleeve gastrectomy and laparoscopic gastropexy INDICATIONS: This is a 47 year-old female who was electively scheduled for laparoscopic, possibly open sleeve gastrectomy. The risks and complications of the procedure were discussed with the patient in advance, particularly the possibility of ; pulmonary embolism; staple line leak; bleeding; GERD; cardiac, pulmonary, or renal complications; as well as long-term problems such as insufficient weight loss, vitamin deficiency, strictures, or ulcers. The patient understood all the risks, and was in agreement to proceed with surgery. DESCRIPTION OF PROCEDURE: After informed consent was obtained from the patient, the patient was given preoperative antibiotics, and was transferred to the operating room. After successful induction of general anesthesia, pneumatic compression devices were placed on both lower extremities. An upper endoscopy was performed next. The oropharynx and esophagus appeared to be within normal limits. There was no diaphragmatic hernia present consistent with the findings of the preoperative upper GI. The stomach was entered. Then after all fluid and air were suctioned and the stomach was fully decompressed, the scope was withdrawn and secured in the mid esophagus. The patient was then prepped and draped in the usual sterile manner, and abdominal access was established at the right upper quadrant with the Charlotte technique. A 12 mm blunt port was inserted, and the abdomen was insufflated with CO2 to a pressure of 15 mmHg. Under direct visualization, additional ports were placed, specifically two 5 mm Versi-step ports to the left upper quadrant, and a 5 mm Versi-Step port to the right upper quadrant. 1% lidocaine plain was used to infiltrate all port sites as well as all fascia defects. Following that, the patient was placed in a steep reverse Trendelenburg position. An additional 5 mm port was placed to the right flank for the Mediflex retractor that was used to retract the left lobe of the liver. The gastro-esophageal fat pad was opened with the ultrasonic device ([employer], Olympus) and the anterior esophagus and hiatus were exposed. The angle of His was opened with the ultrasonic device the fundus of the stomach from any diaphragmatic and splenic attachments. I then opened the gastrocolic ligament between the transverse colon and the greater curvature of the stomach with the ultrasonic device to enter the lesser sac and facilitate the ligation of the short gastric vessels. I started at a mid-point along the greater curvature and using the Thunderbeat, all short gastric vessels were divided all the way to the angle of His until the left fe was completely dissected at its entirety. I then divided the gastro-colic ligament distally to a distance of about 3-4 cm proximal to the pylorus. The stomach was then divided transversely with two Endo VIDAL-45 purple and four VIDAL-60 articulating purple loads using the clickTRUE stapler and loads. Every effort was made that the gastric sleeve had a tubular shape and an even caliber throughout. Once the sleeve resection was completed, the staple line of the gastric sleeve was reinforced with Hemoclips. The resected stomach was retrieved without difficulty from the Charlotte port. A gastropexy was then performed in order to prevent postoperative GERD and partial gastric volvulus. Several interrupted 2.0 Surgidac sutures were placed between the sleeve's staple line and the previously divided greater omentum and gastro-colic ligament using the Endo-Stitch device. ?An upper endoscopy was performed. There was no narrowing at the GE junction. The scope was easily advanced all the way to the pylorus which was clearly visualized. There was no narrowing anywhere and the sleeve's caliber was even throughout. The sleeve's staple line was inspected and there was no evidence of ischemia, bleeding or dehiscence. At that point the gastroscope was withdrawn from the patient?s mouth while we were decompressing the bowel and the stomach from any remaining air. I looked into the lesser sac to see how the sleeve was situating and it was situating well. There was no bleeding from the staple line, spleen, or short gastric vessels. The Mediflex retractor was removed, and the undersurface of the liver was inspected and there was no bleeding. The patient was placed in supine position. I closed the fascial defect of the 12 mm port site with a figure of eight #1 Polysorb suture. Then 30cc Ropivacaine plain with 10 mg of Dexamethasone were used to infiltrate the fascial closure as well as all skin incisions. A total of ml Zynrelef was applied in the Charlotte wound. At this point, the abdomen was deflated, all ports were removed under direct vision, and no bleeding was noted from any of the port sites. The skin incisions were irrigated with saline and were closed with 4-0 absorbable monofilament sutures. Steri-Strips and OpSites were used to cover all incisions. The patient was extubated and was transferred in stable condition to the recovery room for further care. I was present and performed all mendiola parts of the procedure. Ms. Guaman was the assistant refinery operator. There were no residents to assist with this case. Sadu Smith MD, PhD, FACS Surgeon: Charlie Smith MD Anesthesia: GETA, local and other (TAP block and ml Zynrelef) Was an Featheredger And Reducer Machine used for this Procedure?: No Featheredger And Reducer Machine: Leilani Guaman Estimated blood loss (mL): 10 IV fluids (mL): 1,800 Urine output (mL): 0 (No Minor to record output) Pathology: other (Stomach) Condition: stable Disposition: PACU
--- NOTE | 2023-07-16 07:49 | P.PNGS_ITS ---
Subjective Subjective Date of Service: 07/17/23 Interval history: Feels well. Mild incisional pain. She is tolerating phase 1 bariatric diet Physical Exam 2 Vital Signs: Vital Signs: Last Vital Signs Temp 98.4 F 07/16/23 06:21 Pulse 91 07/16/23 06:21 Resp 16 07/16/23 06:21 BP 129/80 07/16/23 06:21 Pulse Ox 97 07/16/23 06:21 O2 Del Method Room Air 07/16/23 06:21 BMI result Body Mass Index 40.4 GI: Inspection: Yes normal to inspection, Yes incision (clean, dry and intact) and Yes obesity Extrem: Right lower extremity: normal to inspection (no calf tenderness) L eft lower extremity: normal to inspection (no calf tenderness) Objective Data Active Medications Lactated Ringer's (Lr) 1,000 mls @ 100 mls/hr IVCONT .Q10H [facility] Last Admin: 07/16/23 06:58 Dose: 100 mls/hr Documented By: DONNA Lactated Ringer's (Lr) 1,000 mls @ 999 mls/hr IV .Q1H1M [facility] Stop: 07/16/23 08:15 Last Admin: 07/16/23 07:02 Dose: 999 mls/hr Documented By: DONNA Labs 07/17/23 06:16 07/17/23 06:16 Procedures Date of Service Date of Service: 07/17/23 Progress Note: A&P Assessment and plan (1) Obesity: Status: Acute Assessment and Plan: s/p laparoscopic sleeve gastrectomy and gastropexy Doing well Will check am labs and if OK the patient will be discharged home (2) BMI 39.0-39.9,adult: Status: Acute (3) Hypothyroidism: Status: Acute (4) GERD (gastroesophageal reflux disease): Status: Acute (5) DJD (degenerative joint disease): Status: Acute (6) Fatty liver: Status: Acute (7) Insomnia: Status: Acute (8) S/P laparoscopic sleeve gastrectomy: Status: Acute Time Spent With Patient Time: Total time managing care of this patient today ____ minutes. Quality Stroke Does the patient have a stroke diagnosis?: No VTE Prior VTE?: No VTE Risk Level:: Surgical - moderate VTE Device Contraindication: N/A - Device Ordered VTE Drug Contraindication: Treatment Not Indicated
--- NOTE | 2023-07-16 09:54 | P.DS_ITS ---
DS: Providers Provider Date of Service: 07/17/23 Primary care physician: Brandon Celeste DO DS: Diagnosis Discharge Diagnosis (1) Obesity: Status: Acute (2) BMI 39.0-39.9,adult: Status: Acute (3) Hypothyroidism: Status: Acute (4) GERD (gastroesophageal reflux disease): Status: Acute (5) DJD (degenerative joint disease): Status: Acute (6) Fatty liver: Status: Acute (7) Insomnia: Status: Acute DS: Summary Hospital Course Hospital Course: ADMITTING DIAGNOSIS: morbid obesity, liver steatosis, hypothyroidism, GERD DISCHARGE DIAGNOSIS: same, s/p laparoscopic sleeve gastrectomy PAST SURGICAL HISTORY: BTL, section PROCEDURE: upper endoscopy, laparoscopic sleeve gastrectomy DISCHARGE SUMMARY: History of Present Illness: The patient is a 47 year-old woman with a BMI of 44.7 kg/m2 and associated co- morbidities as described above. The patient had extensive work-up, lost 22.2 lbs preoperatively and was electively scheduled for laparoscopic, possible open sleeve gastrectomy and gastropexy. Risks and complications of the surgery were discussed with the patient in advance, particularly the possibility of , pulmonary embolism, anastomotic leak, bleeding, bowel injury, GERD, cardiac, renal or pulmonary complications. The patient understood all the risks and was in agreement with the surgical plan. Hospital Course: The patient underwent an uneventful laparoscopic sleeve gastrectomy with gastropexy on the day of admission. Postoperatively, the patient was transferred to the surgical floor. The patient received IV Acetaminophen and IV dilaudid for pain control. Patient was started on bariatric phase 1 diet POD #0. On postoperative day one, the patient was feeling well without nausea, vomiting, fevers, or tachycardia. The patient had some mild incisional pain and the abdomen was soft. On the morning of postoperative day one, the patient was continued on 1 ounce of water or ice every half hour. During the day, the patient did fairly well, having some incisional pain, but able to ambulate adequately and to tolerate liquids well. Since the patient is doing well, we decided that the patient was ready to be discharged. The patient was given instructions to follow-up with me next week and to call my office for any fever over 101, persistent abdominal pain, nausea, vomiting, GERD, symptoms of DVT such as calf tenderness, or leg swelling, or pulmonary embolism such as chest pain or shortness of breath. The patient was also instructed to drink 40-60 ounces of liquids per day using the 1-ounce cups. The patient had been given prescriptions for Tylenol for pain, Zofran prn for nausea, and pantoprazole and carafate previously. The patient was encouraged to ambulate and use the incentive spirometer. The patient was allowed to shower, but no baths, and encouraged to stay active at home. All of these instructions were given to the patient personally. All questions were answered and the patient understood all instructions, the instructions were also given to the patient in print. Time Attestation Discharge coordination time: Less than 30 minutes Quality: Safe Use of Opioids Does Pt have an Active Cancer Diagnosis on the Problem List?: No Quality: Stroke Does the patient have a stroke diagnosis?: No Physical Exam Vital Signs: Vital Signs: Last Vital Signs Temp 98.4 F 07/16/23 06:21 Pulse 91 07/16/23 06:21 Resp 16 07/16/23 06:21 BP 129/80 07/16/23 06:21 Pulse Ox 97 07/16/23 06:21 O2 Del Method Room Air 07/16/23 06:21 BMI result Body Mass Index 40.4 DS: Data Data Completed and Pending Pending studies at discharge: Pending at discharge 07/16/23 09:07 Surgical [PTH] Routine Discharge Plan Discharge Patient Disposition: Home, Self-Care Referrals: Brandon Celeste DO [Primary Care Provider] - 1 Week Discharge Medications: Continued amitriptyline 25 mg tablet 25 mg PO BEDTIME levothyroxine 137 mcg capsule 137 mcg PO BEDTIME Zyrtec 10 mg capsule 10 mg PO DAILY PRN (Reason: Allergy Symptoms) pantoprazole 40 mg tablet,delayed release (DR/EC) 40 mg PO DAILY Qty: 30 2RF sucralfate 100 mg/mL suspension 10 ml PO BID Qty: 400 2RF ondansetron 4 mg tablet,disintegrating 4 mg PO Q12H Qty: 20 0RF Rx Instructions: Only take one every 12 hours as needed if you have nausea Discontinued ibuprofen 200 mg capsule 200 mg PO Q6H PRN (Reason: Menstrual Cramps) Discharge Orders: Discharge Order (Routine); Ordered 07/17/23 Ordered By: Charlie Smith Activity Restrictions/Additional Instructions: No tub baths, sex or returning to work until discussed at first post op appointment. No exercise, alcohol, tobacco or illegal drug use. Continue to use incentive spirometer hourly while awake. Walk in home for 5- 10 minutes every 2 hours during the first week. Continue phase 1 diet today and start phase 2 diet tomorrow morning. Follow all instructions in the bariatric handbook and call with any questions. 1. Please call your doctor or come back to the emergency room should any new symptoms arise. 2. You will receive a courtesy call from [facility] 24-48 hours after discharge. 3. Activity: abstain from alcohol, practice limited stair climbing, no bending, no driving, no exercise, no illicit substances, no lifting, no sex, no tub bath, no work. 4. Diet: continue as discussed with bariatric team.. 5. Dressing Change/Wound Care: Do not change or remove surgical dressings unless they are wet or soiled. 6. Call your doctor if: - Your temperature exceeds 101.5 F - You experience excessive pain or swelling - You have an unexpected reaction to medication - You have excessive bleeding - You experience continued vomiting/nausea - Your incision begins to separate - Your incision shows signs of infection such as increased redness, swelling, excessive pain, heat, or drainage (light blood or clear fluid is normal) 7. General instructions: No lifting greater than 5 lbs for 1 week and not more than 20lbs the next 3?weeks. No driving until seen at the office in 5-7 days after surgery. If you do not move your bowels in the next 2 days, please tell?Dr. Smith. Please walk around your home every hour or two to prevent blood clots from forming in your legs. You do not need to wake from sleeping to walk. Please sleep in a bed or couch to prevent kinking at the hips and knees. Please take your incentive spirometer (your lung plans examiner) home with you and use it for the next few days to prevent pneumonia. You may shower, no hot tubs, baths or swimming pools.?Please follow the post op diet instructions you are?given by Dr Catracho shen? and text me daily at 5-6pm for an update.?If you have any issues or concerns or questions please communicate this to him via text.? The Celebrate shakes have all of the bariatric vitamins you need if you consume these shakes. If you are drinking other protein shakes, you will need to purchase the Celebrate multivitamins and calcium that are available in the hospital gift shop on the first floor of the main hospital.??Do not take a nything without first discussing with Dr Smith. Please make sure you are consuming at least 40 ounces of fluids per day starting the?day AFTER your discharge from the hospital. Always drink 1-2 ml per minute using the 5ml?syringe. If you drink faster you may experience?bloating,?gas pain, burping, nausea or heartburn. In that case please slow down your pace and use the syringe to?understand better the?proper?pace and volume of drinking. Do not hesitate to contact the office with any questions at . The patient's medical history has been reviewed and they are considered low risk for post op DVT and therefore DVT prophylaxis is not considered necessary. Travel after surgery was reviewed. The patient has not disclosed any travel plans during the first 30 days after surgery and they have been advised that within the first 30 days after surgery any bus, plane, train or car travel over 2 hours in duration is contraindicated due to the possibility of developing blood clots from immobility. Any travel, needs to include periods of ambulation of 10 minutes in duration every 2 hours. The patient was instructed to discuss any plans for travel during this period with their bariatric surgeon.
[2023-07-16 10:24] LABS: Hematocrit 37.7 % (37.0-47.0); Hemoglobin 12.1 g/dl (12.0-16.0)
[2023-07-16 10:38] LABS: Anion Gap 10 (12-20); Blood Urea Nitrogen 11 mg/dL (9-16); Calcium 8.4 mg/dL (8.4-10.2); Carbon Dioxide 23 mmol/L (22-29); Chloride 106 mmol/L (96-108); Creatinine Clr Calc Pharmacy 91.5; Estimated Glomerular Filt Rate > 60; Glucose Random 125 mg/dL (60-115); Potassium 4.2 mmol/L (3.3-5.1); Sodium 135 mmol/L (135-145)
--- NOTE | 2023-07-16 11:42 | PHA.MEDREC ---
Pharmacy Consult ? Medication Reconciliation Pharmacy has completed the medication reconciliation.pharmacy has reviewed the med rec done by nursing
--- NOTE | 2023-07-16 13:06 | PC.NURSE ---
Pt arrived to the unit at this time. VSS. 2LNC, sleepy from anesthesia. A&Ox3, Lungs clear, dim, no c/o pain at this time, bed alarm on for safety. Admission to be done once patient is more awake. Call brandt within reach, at bedside.
[2023-07-16] MEDS: Famotidine/PF 20 MG/2 ML VIAL IVPUSH ×2 (13:31→21:11)
[2023-07-16] MEDS: Acetaminophen 1,000 MG/100 ML PIGGYBACK 16.7 MG IV ×2 (13:43→21:12)
[2023-07-16] MEDS: Metoclopramide HCl 10 MG/2 ML VIAL IVPUSH (15:43)
[2023-07-16] MEDS: Levothyroxine Sodium 112 MCG TABLET PO (21:11)
[2023-07-16] MEDS: Levothyroxine Sodium 25 MCG TABLET PO (21:11)
[2023-07-16] MEDS: Amitriptyline HCl 25 MG TABLET PO (21:11)
[2023-07-16] MEDS: 0.9 % Sodium Chloride Flush 3 ML SYRINGE IVFLUSH (21:12)
[2023-07-17] MEDS: Acetaminophen 1,000 MG/100 ML PIGGYBACK 16.7 MG IV (03:18)
[2023-07-17 03:51] VITALS: BP 127/71; PULSE 81; RESP 16; TEMP 36.7; O2SAT 96
[2023-07-17 06:52] LABS: MANUAL DIFF FLAG NO
[2023-07-17 06:59] LABS: Basophils Percent Auto 0.2 % (0-2); Hemoglobin 10.7 g/dl (12.0-16.0); Imm Gran Abs Auto 0.06 X10*3/uL (0.00-0.03); Imm Gran Pct Auto 0.5 % (0.0-0.4); Lymphocytes Absolute Auto 1.1 X10*3/uL (1.2-4.9); Lymphocytes Percent Auto 8.3 % (20-40); Mean Corpuscular HGB Conc 32.4 g/dl (31.0-35.0); Mean Corpuscular Hemoglobin 27.2 pg (27.0-33.0); Mean Corpuscular Volume 83.8 fL (80.0-98.0); Mean Platelet Volume 9.5 fL (9.4-12.3); Monocytes Absolute Auto 0.8 X10*3/uL (0.1-1.2); Monocytes Percent Auto 6.1 % (2-11); Neutrophils Percent Auto 84.9 % (45-73); Platelet Count 263 X10*3/uL (160-400); Red Blood Count 3.94 X10*6/uL (4.20-5.50); Red Cell Distribution Width 13.6 % (11.0-16.0); White Blood Count 12.9 X10*3/uL (4.8-10.8)
[2023-07-17 07:12] VITALS: BP 120/70; PULSE 77; RESP 16; TEMP 36.3; O2SAT 96
[2023-07-17 07:18] LABS: Anion Gap 10 (12-20); Blood Urea Nitrogen 8 mg/dL (9-16); Calcium 8.2 mg/dL (8.4-10.2); Carbon Dioxide 22 mmol/L (22-29); Chloride 108 mmol/L (96-108); Creatinine Clr Calc Pharmacy 93.9; Estimated Glomerular Filt Rate > 60; Glucose Random 97 mg/dL (60-115); Potassium 3.9 mmol/L (3.3-5.1); Sodium 136 mmol/L (135-145)
[2023-07-17] MEDS: 0.9 % Sodium Chloride Flush 3 ML SYRINGE IVFLUSH (07:18)
[2023-07-17] MEDS: Famotidine/PF 20 MG/2 ML VIAL IVPUSH (07:18)
--- NOTE | 2023-07-17 08:57 | MHC.CM.PN ---
Female 47 s/p gastric sleeve lives with her family. She is independent with all functional mobility. She states that she has a HCP. A copy has been requested. DP home self care. Her spouse will provide transport home.
--- NOTE | 2023-07-17 09:41 | PC.NURSE ---
Pt understands discharge, unable to document under discharge assessment in Expanse. No questions at this time.
--- NOTE | 2023-07-17 15:20 | HO.POSTANES ---
Post Anesthesia Evaluation Post Anesthesia Evaluation Date of Service: 07/17/23 Vital Signs: Vital Signs Temp Pulse Resp BP Pulse Ox O2 Del Method 07/17/23 07:12 97.4 F 77 16 120/70 96 Room Air 07/17/23 03:51 98.0 F 81 16 127/71 96 Room Air Anesthesia: General Endotracheal-GETA Mental Status: Awake Pain Control: Satisfactory Nausea/Vomiting: None Hydration: Adequate Anesthesia-Related Issues: No Anes. Related Issues
== END 2023-07-17 10:09 | disposition home or self-care (01) ==
LOC: HO.SSS 09:53 → HO.S3 11:38
PROVIDERS: Physician Assistant; PCP Family Medicine; Visit Provider Surgery
PROC: (CPT 43845; principal; 2023-07-16 07:30)
DX: E66.01 Morbid (severe) obesity due to excess calories (principal); Z68.41 Body mass index [BMI] 40.0-44.9, adult; E03.9 Hypothyroidism, unspecified; K21.9 Gastro-esophageal reflux disease without esophagitis; G47.00 Insomnia, unspecified; K76.0 Fatty (change of) liver, not elsewhere classified; M19.90 Unspecified osteoarthritis, unspecified site; J40 Bronchitis, not specified as acute or chronic; Z79.1 Long term (current) use of non-steroidal anti-inflammatories (NSAID); Z79.899 Other long term (current) drug therapy; Z88.1 Allergy status to other antibiotic agents; Z98.51 Tubal ligation status
CPT/HCPCS: 43775; 43659; 36415; 80048; 80053; 80061; 83036; 83525; 84443; 85014; 85018; 85025; 85610; 85730; 86140; 86850; 86900; 86901; 88304; 88305; 88307; 88342; 99024; A4649; C9088; C9145; J0131; J1100; J1170; J1956; J2250; J2405; J2704; J2765; J2795; J3010; J7120

== ENCOUNTER → 2023-07-16 05:59 | Outpatient (BNV) | payer OTHER, SELFPAY | PROVIDERS: PCP Family Medicine; Visit Provider Surgery | DX: E66.9 Obesity, unspecified (principal); Z68.39 Body mass index [BMI] 39.0-39.9, adult | CPT/HCPCS: 43659; 43775; 99024 ==

== ENCOUNTER 2023-07-23 10:26 | Outpatient (AMB) | payer OTHER, SELFPAY ==
--- NOTE | 2023-07-23 10:52 | A.OFFVIS_ITS ---
Intake VS Expanded 07/23/23 11:18 BP 117/78 Blood Pressure Location Rt brachial Blood Pressure Position Sitting Pulse 86 Pulse Source Pulse Oximeter Temp 97.3 F Temperature Source Tympanic Pulse Oximetry 98 Oxygen Delivery Method Room Air Height 4 ft 11.5 in Weight 192 lb BMI 38.1 Body Fat % 43.4 Body Fat Mass 83.4 Fat Free Mass 108.4 Visceral Fat Rating 12.0 Body Water % 40.3 Body Water Mass 77.4 Muscle Mass/Score 103.0 Basal Metabolic Rate/Score 1,522 Intake Visit Reasons: (OV) 7 Days PO LSG 07/16/23 Allergies amoxicillin Allergy (Mild, Verified 07/16/23 06:09) Hives HPI HPI Comments History of Present Illness Details 47-year-old female returns the office to day in follow-up. She is 7 days postop from laparoscopic sleeve gastrectomy performed on 07/16/2023. She states that she was unable to do 3 shakes in total, she has been using celebrate 4 in 1 powder, 1 scoop each, 2 shakes per day and a total of 40 oz of fluids per day. She has had a bowel movement. Mild left lower quadrant abdominal pain, no longer taking Tylenol. PFSH Medical History PONV (postoperative nausea and vomiting) Fatty liver Bronchitis Hypothyroidism GERD (gastroesophageal reflux disease) DJD (degenerative joint disease) Morbid obesity Surgical History Hx of tubal ligation Hx of section Family History Mother Cancer Father Hypertension High cholesterol Brother No problems noted. Son No problems noted. Daughter No problems noted. Social History Household Members: Family Housing: House Are you a primary hospice home care coordinator to a significant other at home: No Do you presently have visiting nurse or other home services: No Alcohol intake: current Alcohol intake frequency: holidays/special occasions only Patient Tobacco Use Status: Never used Tobacco service: No Physical Exam GI Inspection: Yes incision (Mild ecchymosis otherwise clean, dry, intact.) Assessment & Plan Assessment & Plan (1) S/P laparoscopic sleeve gastrectomy: Code(s): Z98.84 - Bariatric surgery status Plan: POD 7 s/p LSG on 07/16/[address] Smith Weight loss prior to surgery was 19.1 pounds or 8.4 % TBWL. Original weight on 01/09/2023 was 225.4 pounds and op weight was 206.3 pounds. Be sure to text Dr Smith exactly 1 week after surgery your weight from your home scale so he can adjust your meal plan. Continue meal plan until f/u w brandt in 2 weeks May shower, no submersion in bath for another week Continue abdominal binder with activity and exercise for the next 2 weeks. Exercise prior to surgery was elliptical, may resume No abdominal exercises for 6 weeks post operatively Will be emailed link to post op video for review Reminded of the pace of drinking, 2 mL per minute, 1 oz/15 min. Coding Level of Care Code Global (56857) Diagnoses S/P laparoscopic sleeve gastrectomy Z98.84
[2023-07-23 11:18] VITALS: BP 117/78; PULSE 86; TEMP 36.3; O2SAT 98; BMI 38.1
== END 2023-07-23 11:30 | disposition home or self-care (01) ==
PROVIDERS: Visit Provider Physician Assistant Surgical
DX: Z98.84 Bariatric surgery status (principal)
CPT/HCPCS: 99024

== ENCOUNTER → 2023-07-23 10:26 | Outpatient (BNVA) | payer OTHER, SELFPAY | PROVIDERS: Visit Provider Physician Assistant Surgical ==

== ENCOUNTER 2023-08-07 08:27 | Outpatient (AMB) | payer OTHER, SELFPAY ==
--- NOTE | 2023-08-07 08:29 | A.OFFVIS_ITS ---
Intake VS Expanded 08/07/23 08:39 BP 127/69 Blood Pressure Location Rt brachial Blood Pressure Position Sitting Pulse 79 Pulse Source Pulse Oximeter Temp 97.7 F Temperature Source Temporal Artery Scan Pulse Oximetry 97 Oxygen Delivery Method Room Air Height 4 ft 11.5 in Weight 185 lb 3.2 oz BMI 36.8 Body Fat % 40.7 Body Fat Mass 75.4 Fat Free Mass 109.8 Visceral Fat Rating 10.0 Body Water % 42.3 Body Water Mass 78.2 Muscle Mass/Score 104.2 Basal Metabolic Rate/Score 1,524 Intake Visit Reasons: (OV) PO LSG 07/16/23 Director Wholesale Required: No Allergies amoxicillin Allergy (Mild, Verified 08/07/23 08:35) Hives Medication List - Last Reconciled 08/07/23 by SIMÓN Mckenzie amitriptyline 25 mg PO BEDTIME cetirizine (Zyrtec) 10 mg PO DAILY PRN levothyroxine 137 mcg PO BEDTIME pantoprazole 40 mg PO DAILY sucralfate 10 mL PO BID HPI HPI Comments History of Present Illness Details This?a?47?yo female who is s/p LSG without hiatal hernia repair on?07/16/23. Presents for 3 week post op visit. Weight today is 185.2 pounds, with a BMI of 36.8. There has been a 40.2 pound weight loss,(initial weight 225.4 pounds) since starting the program on 01/09/23 reflecting a 17.8% total body weight loss and a weight loss of 21.1 pounds since surgery (operative weight 206.3 pounds) reflecting a 10.2% TBWL since surgery. No complaints of nausea, emesis, abdominal pain or reflux. Reports infrequent but normal bowel movements every 3- 4 days and uses stool softeners regularly. Present meal plan includes: Celebrate 4 in 1 2 scoops in 8 oz almond milk x 2, 10-12, 4-6 pm Drinking 30 oz water daily. ? Exercise routine includes: elliptical 150 tomasa 5 days per week. [facility] Medical History BMI 39.0-39.9,adult PONV (postoperative nausea and vomiting) Fatty liver Bronchitis Hypothyroidism GERD (gastroesophageal reflux disease) DJD (degenerative joint disease) Morbid obesity Surgical History S/P laparoscopic sleeve gastrectomy Hx of tubal ligation Hx of section Family History Mother Cancer Father Hypertension High cholesterol Brother No problems noted. Son No problems noted. Daughter No problems noted. Social History Household Members: Family Housing: House Are you a primary health care sanitary technician to a significant other at home: No Do you presently have visiting nurse or other home services: No Alcohol intake: current Alcohol intake frequency: holidays/special occasions only Patient Tobacco Use Status: Never used Tobacco service: No Physical Exam Const General: healthy appearing and no acute distress Resp Effort & Inspection: normal respiratory effort Auscultation: clear to auscultation bilaterally Cardio Rate: regular rate Rhythm: regular rhythm GI Auscultation: normal bowel sounds Extrem General: Yes normal to inspection Assessment & Plan Assessment & Plan (1) Hypothyroidism: Code(s): E03.9 - Hypothyroidism, unspecified Plan: pt stated TSH levels sensitive to weight loss/gain requests check at 3 months ordered for 10/14/23 (2) S/P laparoscopic sleeve gastrectomy: Code(s): Z98.84 - Bariatric surgery status Plan: change meal plan to add ZP bar over 3 hrs increase exercise Orders: Orders TSH reflex Free T4 10/14/23 E03.9 - Hypothyroidism, unspecified Coding Level of Care Code Global (20019) Diagnoses Hypothyroidism E03.9 S/P laparoscopic sleeve gastrectomy Z98.84
[2023-08-07 08:39] VITALS: BP 127/69; PULSE 79; TEMP 36.5; O2SAT 97; BMI 36.8
== END 2023-08-07 09:05 | disposition home or self-care (01) ==
PROVIDERS: Visit Provider Physician Assistant Surgical
DX: E03.9 Hypothyroidism, unspecified (principal); Z98.84 Bariatric surgery status
CPT/HCPCS: 99024

== ENCOUNTER → 2023-08-07 08:27 | Outpatient (BNVA) | payer OTHER, SELFPAY | PROVIDERS: Visit Provider Physician Assistant Surgical ==

== ENCOUNTER 2023-09-09 14:54 | Outpatient (AMB) | payer OTHER, SELFPAY ==
--- NOTE | 2023-09-09 14:31 | MHC.OFFVISWM ---
Intake VS Expanded 09/09/23 14:36 Height 4 ft 11.5 in Weight 171 lb 3.2 oz BMI 34.0 Intake Visit Reasons: (TV) PO LSG 07/16/23 Allergies amoxicillin Allergy (Mild, Verified 08/07/23 08:35) Hives HPI HPI Comments History of Present Illness Details This?a?48?yo femal e who is s/p LSG w ithout hiatal rani ia repair on?. Presents for 7 week post op visi t. Weight today is 171.2 pounds, wit h a BMI of 36.8. There has been a 5 4.2 pound weight l oss,(initial weigh t 225.4 pounds) si nce starting the p rogram on 01/09/23 reflecting a 24% t otal body weight l oss and a weight l oss of 35.1 pounds since surgery (op erative weight 206 .3 pounds) reflect ing a 17% TBWL sin ce surgery. No co mplaints of nausea , emesis, abdomina l pain or reflux. Reports infrequent but normal bowel movements every 2- [address] ool softeners regu larly. She has be en somewhat incons istent with the ZP bar, eating it 4 of 7 days. She is now unhappy with the vanilla shake, but still tolerat ing it. Present meal plan include s: Celebrate 4 in 1 2 scoops in 8 o z almond milk x 2, 10-12, 4-6 pm zp bar Drinking 30 oz water daily in ad dition to the julio es. ? Exercise routine includes: Had home construct ion so no elliptic al in 2 weeks now resolved. previous ly, elliptical 150 tomasa 5 days per we ek. PFSH Medical History BMI 39.0-39.9,adult PONV (postoperative nausea and vomiting) Fatty liver Bronchitis Hypothyroidism GERD (gastroesophageal reflux disease) DJD (degenerative joint disease) Morbid obesity Surgical History S/P laparoscopic sleeve gastrectomy Hx of tubal ligation Hx of section Family History Mother Cancer Father Hypertension High cholesterol Brother No problems noted. Son No problems noted. Daughter No problems noted. Social History Household Members: Family Housing: House Are you a primary healthcare advisory services manager to a significant other at home: No Do you presently have visiting nurse or other home services: No Alcohol intake: current Alcohol intake frequency: holidays/special occasions only Patient Tobacco Use Status: Never used Tobacco service: No Assessment & Plan Assessment & Plan (1) Obesity: Code(s): E66.9 - Obesity, unspecified Plan: Discussed the importance of maintaining consistency with her meal plan. She will now have the bar consistently. Additionally discussed increasing fluids slightly to approximately 40 oz of water in addition to her shakes. Additionally, discussed the importance of resuming her exercise regimen which she will do. She will consider adding weightlifting as well for muscle tone. Plan to return to the office in 3 weeks. Telehealth Telehealth Location of provider rendering services: practice address Location of patient: other Patient Identification confirmed using: Name, : Yes Telehealth method: voice only Patient verbally consented to treatment: Yes Patient verbally consented to billing insurance company: Yes Patient informed of any privacy concerns related to visit: Yes Minutes spent on Phone/Video with Pt.: 15 Coding Level of Care Code Global (78115) Diagnoses Obesity E66.9
[2023-09-09 14:36] VITALS: BMI 34.0
== END 2023-09-09 15:02 | disposition home or self-care (01) ==
LOC: HO.HBS 14:54
PROVIDERS: Visit Provider Physician Assistant Surgical
DX: E66.9 Obesity, unspecified (principal); Z68.34 Body mass index [BMI] 34.0-34.9, adult; Z90.3 Acquired absence of stomach [part of]; Z98.84 Bariatric surgery status
CPT/HCPCS: 99024

== ENCOUNTER → 2023-09-09 14:54 | Outpatient (BNVA) | payer OTHER, SELFPAY | PROVIDERS: Visit Provider Physician Assistant Surgical ==

== ENCOUNTER 2023-10-07 14:47 | Outpatient (AMB) | payer OTHER, SELFPAY ==
--- NOTE | 2023-10-07 11:55 | A.OFFVIS_ITS ---
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 Presents for 2.5 month post op visit. Weight today is 160.9 pounds, with a BMI of 32. There has been a 64.5 pound weight loss,(initial weight 225.4 pounds) since starting the program on 01/09/23 reflecting a 28.6% total body weight loss and a weight loss of 45.4 pounds since surgery (operative weight 206.3 pounds) reflecting a 22% TBWL since surgery. No complaints of nausea, emesis, abdominal pain or reflux. Reports infrequent but normal bowel movements every 3-4 days and uses stool softeners regularly. She states she is feeling very well but sometimes gets a full feeling just before bed. Present meal plan includes: Celebrate 4 in 1 2 scoops in 8 oz almond milk x 2, 10-12, 4-6 pm ZP bar 1/2 at lunch, 1/2 at night Drinking 70 oz water daily. ? Exercise routine includes: elliptical 175-300 tomasa 4 days per week. Also has bands and cable pully system, weights. [facility] Medical History BMI 39.0-39.9,adult PONV (postoperative nausea and vomiting) Fatty liver Bronchitis Hypothyroidism GERD (gastroesophageal reflux disease) DJD (degenerative joint disease) Morbid obesity Surgical History S/P laparoscopic sleeve gastrectomy Hx of tubal ligation Hx of section Family History Mother Cancer Father Hypertension High cholesterol Brother No problems noted. Son No problems noted. Daughter No problems noted. Social History Household Members: Family Housing: House Are you a primary complex care nurse practitioner to a significant other at home: No Do you presently have visiting nurse or other home services: No Alcohol intake: current Alcohol intake frequency: holidays/special occasions only Patient Tobacco Use Status: Never used Tobacco service: No Review of Systems Const All systems reviewed & are unremarkable except as noted in HPI and below Assessment & Plan Assessment & Plan (1) S/P laparoscopic sleeve gastrectomy: Code(s): Z98.84 - Bariatric surgery status Plan: Patient is making fairly good progress. She does not wish to change her meal plan at this time. She does state that she has had some sense of fullness although has found herself occasionally having a piece of an extra bar at night. She will change the order of her meal plan to include shake, bar, shake. She will attempt to increase her exercise regimen to 300 calories per day 7 days a week and if she is unable to do 7 days a week she will again try to increase her calories to a goal of 2000 per week. We will set up for return appointment in approximately 3 weeks Telehealth Telehealth Location of provider rendering services: practice address Location of patient: address on file Patient Identification confirmed using: Name, : Yes Telehealth method: voice only Patient verbally consented to treatment: Yes Patient verbally consented to billing insurance company: Yes Patient informed of any privacy concerns related to visit: Yes Minutes spent on Phone/Video with Pt.: 12 Coding Level of Care Code Global (36004) Diagnoses S/P laparoscopic sleeve gastrectomy Z98.84
[2023-10-07 11:56] VITALS: BMI 32.0
== END 2023-10-07 14:50 | disposition home or self-care (01) ==
LOC: HO.HBS 14:48
PROVIDERS: Visit Provider Physician Assistant Surgical
DX: E66.9 Obesity, unspecified (principal); Z68.32 Body mass index [BMI] 32.0-32.9, adult; Z90.3 Acquired absence of stomach [part of]; Z98.84 Bariatric surgery status
CPT/HCPCS: 99024

== ENCOUNTER → 2023-10-07 14:47 | Outpatient (BNVA) | payer OTHER, SELFPAY | PROVIDERS: Visit Provider Physician Assistant Surgical ==

== ENCOUNTER 2023-10-28 14:30 | Outpatient (AMB) | payer OTHER, SELFPAY ==
--- NOTE | 2023-10-28 12:57 | MHC.OFFVISWM ---
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 Presents for 3 month post op visit. Weight today is 150.4 pounds, with a BMI of 29.8. There has been a 75 pound weight loss,(initial weight 225.4 pounds) since starting the program on 01/09/23 reflecting a 33.2% total body weight loss and a weight loss of 55.9 pounds since surgery (operative weight 206.3 pounds) reflecting a 27% TBWL since surgery. No complaints of nausea, emesis, abdominal pain or reflux. Reports infrequent but normal bowel movements every 3-4 days and uses stool softeners regularly. She states she is feeling very well. She is satisfied with the current meal plan and does not wish to change. Present meal plan includes: Celebrate 4 in 1 2 scoops in 8 oz almond milk x 2, 10-12, 4-6 pm ZP bar 1 daily Drinking 50 oz water daily. ? Exercise routine includes: elliptical 250-300 tomasa 4 days per week. Also has bands and cable pully system, weights. [facility] Medical History BMI 39.0-39.9,adult PONV (postoperative nausea and vomiting) Fatty liver Bronchitis Hypothyroidism GERD (gastroesophageal reflux disease) DJD (degenerative joint disease) Morbid obesity Surgical History S/P laparoscopic sleeve gastrectomy Hx of tubal ligation Hx of section Family History Mother Cancer Father Hypertension High cholesterol Brother No problems noted. Son No problems noted. Daughter No problems noted. Social History Household Members: Family Housing: House Are you a primary healthcare network pricing consultant to a significant other at home: No Do you presently have visiting nurse or other home services: No Alcohol intake: current Alcohol intake frequency: holidays/special occasions only Patient Tobacco Use Status: Never used Tobacco service: No Assessment & Plan Assessment & Plan (1) S/P laparoscopic sleeve gastrectomy: Code(s): Z98.84 - Bariatric surgery status Plan: Patient is making very good progress. She wishes to continue her current meal plan. She will communicate weekly by text with any questions or concerns and follow-up in the office in 4 weeks. Medications: New sennosides (senna) 17.2 mg (2 x 8.6 mg) PO BEDTIME 60 days PRN 120 tabs 0RF constipation Telehealth Telehealth Location of provider rendering services: practice address Location of patient: other Patient Identification confirmed using: Name, : Yes Telehealth method: voice only Patient verbally consented to treatment: Yes Patient verbally consented to billing insurance company: Yes Patient informed of any privacy concerns related to visit: Yes Minutes spent on Phone/Video with Pt.: 12 Coding Level of Care Code Global (47829) Diagnoses S/P laparoscopic sleeve gastrectomy Z98.84 Time Spent (min) 20
[2023-10-28 12:58] VITALS: BMI 29.8
== END 2023-10-28 16:27 | disposition home or self-care (01) ==
LOC: HO.HBS 14:53
PROVIDERS: Visit Provider Physician Assistant Surgical
DX: E66.9 Obesity, unspecified (principal); Z68.29 Body mass index [BMI] 29.0-29.9, adult; Z90.3 Acquired absence of stomach [part of]; Z98.84 Bariatric surgery status
CPT/HCPCS: 99212

== ENCOUNTER → 2023-10-28 14:30 | Outpatient (BNVA) | payer OTHER, SELFPAY | PROVIDERS: Visit Provider Physician Assistant Surgical ==

== ENCOUNTER 2023-12-02 14:50 | Outpatient (AMB) | payer OTHER, SELFPAY ==
--- NOTE | 2023-12-02 09:29 | A.OFFVIS_ITS ---
VS Expanded 12/02/23 09:30 Height 4 ft 11.5 in Weight 144 lb 12.8 oz BMI 28.8 Body Fat % 35.3 Body Fat Mass 51.1 Fat Free Mass 93.6 Visceral Fat Rating 11 Body Water % 44.4 Body Water Mass 64.2 Muscle Mass/Score 88 Basal Metabolic Rate/Score 1,291 Intake Visit Reasons: (TV) PO LSG 07/16/23 Allergies amoxicillin Allergy (Mild, Verified 08/07/23 08:35) Hives HPI Comments Details: This?a?48?yo female who is s/p LSG without hiatal hernia repair on?07/16/23. Presents for 4.5 month post op visit. Weight today is 144.8 pounds, with a BMI of 28.8. There has been a 80.6 pound weight loss,(initial weight 225.4 pounds) since starting the program on 01/09/23 reflecting a 35.7% total body weight loss and a weight loss of 61.5 pounds since surgery (operative weight 206.3 pounds) reflecting a 29.8% TBWL since surgery. No complaints of nausea, emesis, abdominal pain or reflux. Reports infrequent but normal bowel movements every 3- 4 days and uses stool softeners regularly. She states she is feeling very well. She has had some hair loss and started biotin. Not craving foods Present meal plan includes: Celebrate 4 in 1 2 scoops in 8 oz almond milk x 2, 10-12, 4-6 pm ZP bar 2 daily Drinking 50 oz water daily. ? Exercise routine includes: none in the last 2 weeks, sports w son. elliptical 250-300 tomasa 4 days per week. home equipment Also has bands and cable pully system, weights. [facility] Medical History BMI 39.0-39.9,adult PONV (postoperative nausea and vomiting) Fatty liver Bronchitis Hypothyroidism GERD (gastroesophageal reflux disease) DJD (degenerative joint disease) Morbid obesity Surgical History S/P laparoscopic sleeve gastrectomy Hx of tubal ligation Hx of section Family History Mother Cancer Father Hypertension High cholesterol Brother No problems noted. Son No problems noted. Daughter No problems noted. Social History Household Members: Family Housing: House Are you a primary infant caregiver to a significant other at home: No Do you presently have visiting nurse or other home services: No Alcohol intake: current Alcohol intake frequency: holidays/special occasions only Patient Tobacco Use Status: Never used Tobacco service: No Physical Exam Vital Signs: BMI result Body Mass Index 28.8 Telehealth Telehealth Telehealth Platform: Telephone Location of provider rendering services: practice address Location of patient: address on file Patient Identification confirmed using: Name, : Yes Telehealth method: voice only Patient verbally consented to treatment: Yes Patient verbally consented to billing insurance company: Yes Patient informed of any privacy concerns related to visit: Yes Minutes spent on Phone/Video with Pt.: 15 Assessment & Plan Assessment & Plan (1) S/P laparoscopic sleeve gastrectomy: Code(s): Z98.84 - Bariatric surgery status Category: Surgical Plan: She wishes to continue her current meal plan. Will decrease to 1 bar per day. Recommend adding some fresh fruit, half cup fresh berries or an apple in the evening if she wishes. Recommend scheduling exercise 1st thing in the morning. Return to the office in 3 weeks and then again for her six-month follow-up consider adding labs order at her next visit in preparation for her six-month follow-up
[2023-12-02 09:30] VITALS: BMI 28.8
== END 2023-12-02 15:12 | disposition home or self-care (01) ==
LOC: HO.HBS 14:50
PROVIDERS: Visit Provider Physician Assistant Surgical
DX: E66.3 Overweight (principal); Z68.28 Body mass index [BMI] 28.0-28.9, adult; Z90.3 Acquired absence of stomach [part of]; Z98.84 Bariatric surgery status
CPT/HCPCS: 99213

== ENCOUNTER → 2023-12-02 14:50 | Outpatient (BNVA) | payer OTHER, SELFPAY | PROVIDERS: Visit Provider Physician Assistant Surgical ==

== ENCOUNTER 2024-01-22 08:23 | Outpatient (REF) | payer OTHER, SELFPAY ==
[2024-01-22 09:18] LABS: MANUAL DIFF FLAG NO
[2024-01-22 09:29] LABS: Basophils Percent Auto 0.5 % (0-2); Eosinophils Absolute Auto 0.1 X10*3/uL (0.0-0.4); Eosinophils Percent Auto 1.7 % (0-4); Hematocrit 34.9 % (37.0-47.0); Hemoglobin 11.6 g/dl (12.0-16.0); Imm Gran Abs Auto 0.01 X10*3/uL (0.00-0.03); Imm Gran Pct Auto 0.2 % (0.0-0.4); Lymphocytes Absolute Auto 1.6 X10*3/uL (1.2-4.9); Lymphocytes Percent Auto 37.8 % (20-40); Mean Corpuscular HGB Conc 33.2 g/dl (31.0-35.0); Mean Corpuscular Hemoglobin 28.1 pg (27.0-33.0); Mean Corpuscular Volume 84.5 fL (80.0-98.0); Mean Platelet Volume 9.4 fL (9.4-12.3); Monocytes Absolute Auto 0.3 X10*3/uL (0.1-1.2); Monocytes Percent Auto 6.2 % (2-11); Neutrophils Absolute Auto 2.3 x10*3/uL (2.0-8.3); Neutrophils Percent Auto 53.6 % (45-73); Platelet Count 272 X10*3/uL (160-400); Red Blood Count 4.13 X10*6/uL (4.20-5.50); Red Cell Distribution Width 14.3 % (11.0-16.0); White Blood Count 4.2 X10*3/uL (4.8-10.8)
[2024-01-22 09:38] LABS: Estimated Average Glucose 103 mg/dL; Hemoglobin A1c % 5.2 % (<6.0)
[2024-01-22 09:56] LABS: Anion Gap 13 (12-20); Blood Urea Nitrogen 19 mg/dL (9-16); C Reactive Protein < 0.10 mg/dL (< or = 0.50); Calcium 9.1 mg/dL (8.4-10.2); Carbon Dioxide 24 mmol/L (22-29); Chloride 106 mmol/L (96-108); Cholesterol 165 mg/dL (<200); Estimated Glomerular Filt Rate > 60; Glucose Random 87 mg/dL (60-115); HDL Cholesterol 65 mg/dL (>40); Iron 59 mcg/dL (30-160); LDL Cholesterol Calculated 92 mg/dL (<100); Percent Iron Saturation 17 % (15-50); Potassium 4.3 mmol/L (3.3-5.1); Sodium 139 mmol/L (135-145); Total Iron Binding Capacity 352 mcg/dL (228-428); Triglycerides 44 mg/dL (<150); Unsaturated Iron Binding 293 ug/dL
[2024-01-22 10:18] LABS: Ferritin 9 ng/mL (10-250); TSH reflex Free T4 0.03 uIU/mL (0.32-4.0); Vitamin D 25-OH Total 74.8 ng/mL (>30)
[2024-01-22 11:23] LABS: Free T4 (Free Thyroxine) 1.04 ng/dL (0.71-1.85); Insulin < 2 uU/mL (2-29)
[2024-01-22 11:30] LABS: Folate 12.3 ng/mL (> or = 4.0); Vitamin B12 1206 pg/mL (200-900)
[2024-01-27 12:49] LABS: Zinc 76 mcg/dL (60-130)
[2024-01-28 03:33] LABS: Vitamin A 43 mcg/dL (38-98)
[2024-01-28 15:13] LABS: Vitamin B1 70 nmol/L (8-30)
== END 2024-01-22 08:24 | disposition home or self-care (01) ==
LOC: HO.LAB 08:23
PROVIDERS: PCP Family Medicine; Visit Provider Physician Assistant Surgical
DX: Z98.84 Bariatric surgery status (principal); E03.9 Hypothyroidism, unspecified; K76.0 Fatty (change of) liver, not elsewhere classified; Z13.1 Encounter for screening for diabetes mellitus
CPT/HCPCS: 36415; 80048; 80061; 82306; 82607; 82728; 82746; 83036; 83525; 83540; 84425; 84439; 84443; 84590; 84630; 85025; 86140

== ENCOUNTER 2024-01-22 08:23 | Outpatient (AMB) | payer OTHER, SELFPAY ==
--- NOTE | 2024-01-22 08:25 | A.OFFVIS_ITS ---
VS Expanded 01/22/24 08:31 BP 109/58 L Blood Pressure Location Rt brachial Blood Pressure Position Sitting Pulse 68 Pulse Source Pulse Oximeter Temp 96.7 F L Temperature Source Temporal Artery Scan Pulse Oximetry 100 Oxygen Delivery Method Room Air Height 4 ft 11.5 in Weight 129 lb 6.4 oz BMI 25.7 Body Fat % 25.9 Body Fat Mass 33.6 Fat Free Mass 95.6 Visceral Fat Rating 5.0 Body Water % 52.7 Body Water Mass 68.2 Muscle Mass/Score 90.8 Basal Metabolic Rate/Score 1,285 Intake Visit Reasons: (oV) PO LSG 07/16/23 Allergies amoxicillin Allergy (Mild, Verified 01/22/24 08:28) Hives HPI Comments Details: This?a?48?yo female who is s/p LSG without hiatal hernia repair on?07/16/23. Presents for 6 month post op visit. Weight today is 129.4 pounds, with a BMI of 25.7. There has been a 96 pound weight loss,(initial weight 225.4 pounds) since starting the program on 01/09/23 reflecting a 42.5% total body weight loss and a weight loss of 76.9 pounds since surgery (operative weight 206.3 pounds) reflecting a 37.2% TBWL since surgery. No complaints of nausea, emesis, abdominal pain or reflux. Reports infrequent but normal bowel movements every 3- 4 days and uses stool softeners regularly. She states she is feeling very well. Over the past 2 weeks she has tried egg whites, yogurt, chicken, sushi, cheese. Would like to have food option Present meal plan includes: Celebrate 4 in 1 2 scoops in 8 oz almond milk x 2, 10-12, 4-6 pm ZP bar Drinking 50 oz water daily. ? Exercise routine includes: elliptical 250-300 tomasa 4 days per week. home equipment Also has bands and cable pully system, weights. Any post op complications: none YONI: never DM: never HTN: never Hyperlipidemia: never GERD:?0-5 scale ??0 = no symptoms ??1 = symptoms noticeable but not bothersome 2 =symptoms bothersome but not daily ? 3 = symptoms bothersome and daily 4 = symptoms affect daily activities 5 = symptoms are incapacitating, unable to do daily activities ? How bad is the heartburn: 0 ? Heartburn while lying down: 0 ? Heartburn when standing up: 0 ? Heartburn after meals: 0 ? Does heartburn change your diet: 0 ? Does heartburn wake you up from sleep: 0 ? Do you have difficulty swallowin ? Do you have pain with swallowin ? If you take medicine for your reflux, does this affect your daily life: 0 Satisfaction with present condition - satisfied or not satisfied: satisfied [facility] Medical History BMI 39.0-39.9,adult PONV (postoperative nausea and vomiting) Fatty liver Bronchitis Hypothyroidism GERD (gastroesophageal reflux disease) DJD (degenerative joint disease) Morbid obesity Surgical History S/P laparoscopic sleeve gastrectomy Hx of tubal ligation Hx of section Family History Mother Cancer Father Hypertension High cholesterol Brother No problems noted. Son No problems noted. Daughter No problems noted. Social History Household Members: Family Housing: House Are you a primary vision care associate to a significant other at home: No Do you presently have visiting nurse or other home services: No Alcohol intake: current Alcohol intake frequency: holidays/special occasions only Patient Tobacco Use Status: Never used Tobacco service: No Review of Systems Const All systems reviewed & are unremarkable except as noted in HPI and below Physical Exam Const General: cooperative and no acute distress Orientation/consciousness: patient oriented x3 Resp Effort & Inspection: normal respiratory effort Auscultation: clear to auscultation bilaterally Cardio Rate: regular rate Rhythm: regular rhythm GI Inspection: Yes normal to inspection and Yes incision (well healed) Palpation (GI): Soft to palpation and no masses Neuro General: patient oriented x3 Assessment & Plan Assessment & Plan (1) S/P laparoscopic sleeve gastrectomy: Code(s): Z98.84 - Bariatric surgery status Category: Surgical Plan: Patient has made excellent progress. She has achieved a healthy weight. Have encouraged her to continue exercise as she is able. She may substitute for forks protein and 4 forks vegetables for her bar if she wishes. We will check six-month postop labs. Return to the office in 3 months. Encouraged to text her weight is weekly and with any questions or concerns. Orders: Orders Insulin 01/21/24 E03.9 - Hypothyroidism, unspecified, K76.0 - Fatty (change of) liver, not elsewhere classified, Z98.84 - Bariatric surgery status Hemoglobin A1c 01/21/24 E03.9 - Hypothyroidism, unspecified, K76.0 - Fatty (change of) liver, not elsewhere classified, Z98.84 - Bariatric surgery status Complete Blood Count Auto Diff 01/21/24 E03.9 - Hypothyroidism, unspecified, K76.0 - Fatty (change of) liver, not elsewhere classified, Z98.84 - Bariatric surgery status Zinc 01/21/24 E03.9 - Hypothyroidism, unspecified, K76.0 - Fatty (change of) liver, not elsewhere classified, Z98.84 - Bariatric surgery status C Reactive Protein 01/21/24 E03.9 - Hypothyroidism, unspecified, K76.0 - Fatty (change of) liver, not elsewhere classified, Z98.84 - Bariatric surgery status Vitamin B1 01/21/24 E03.9 - Hypothyroidism, unspecified, K76.0 - Fatty (change of) liver, not elsewhere classified, Z98.84 - Bariatric surgery status Vitamin A 01/21/24 E03.9 - Hypothyroidism, unspecified, K76.0 - Fatty (change of) liver, not elsewhere classified, Z98.84 - Bariatric surgery status TSH reflex Free T4 01/21/24 E03. - Hypothyroidism, unspecified, K76.0 - Fatty (change of) liver, not elsewhere classified, Z98.84 - Bariatric surgery status Lipid Panel 01/21/24 E03.9 - Hypothyroidism, unspecified, K76.0 - Fatty (change of) liver, not elsewhere classified, Z98.84 - Bariatric surgery status IRON PROFILE 01/21/24 E03.9 - Hypothyroidism, unspecified, K76.0 - Fatty (change of) liver, not elsewhere classified, Z98.84 - Bariatric surgery status Vitamin B12 and Folate 01/21/24 E03.9 - Hypothyroidism, unspecified, K76.0 - Fatty (change of) liver, not elsewhere classified, Z98.84 - Bariatric surgery status Ferritin 01/21/24 E03.9 - Hypothyroidism, unspecified, K76.0 - Fatty (change of) liver, not elsewhere classified, Z98.84 - Bariatric surgery status Vitamin D 25-OH Total 01/21/24 E03.9 - Hypothyroidism, unspecified, K76.0 - Fatty (change of) liver, not elsewhere classified, Z98.84 - Bariatric surgery status Basic Metabolic Panel 01/21/24 E03.9 - Hypothyroidism, unspecified, K76.0 - Fatty (change of) liver, not elsewhere classified, Z98.84 - Bariatric surgery status
[2024-01-22 08:31] VITALS: BP 109/58; PULSE 68; TEMP 35.9; O2SAT 100; BMI 25.7
== END 2024-01-22 08:56 | disposition home or self-care (01) ==
PROVIDERS: Visit Provider Physician Assistant Surgical
DX: E66.3 Overweight (principal); Z68.25 Body mass index [BMI] 25.0-25.9, adult; Z90.3 Acquired absence of stomach [part of]; Z98.84 Bariatric surgery status
CPT/HCPCS: 99214

== ENCOUNTER 2024-05-18 09:01 | Outpatient (AMB) | payer OTHER, SELFPAY ==
--- NOTE | 2024-05-18 08:18 | A.OFFVIS_ITS ---
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 Presents for 10 month post op visit. Weight today is 129.8 pounds, with a BMI of 25.7. There has been a 95.6 pound weight loss,(initial weight 225.4 pounds) since starting the program on 01/09/23 reflecting a 42.4% total body weight loss and a weight loss of 76.5 pounds since surgery (operative weight 206.3 pounds) reflecting a 37.1% TBWL since surgery. No complaints of nausea, emesis, abdominal pain or reflux. Reports infrequent but normal bowel movements every 3- 4 days and uses stool softeners regularly. She states she is feeling very well. Over the past 2 weeks she has tried egg whites, yogurt, chicken, sushi, cheese. Present meal plan includes: premier protein powder 2 scoops in 8 oz almond milk x 2, 10-12, 4-6 pm 6 forks protein and 6 forks veg Drinking 60-70 oz water daily. ? Exercise routine includes: elliptical 250-300 tomasa 3-4 days per week. home equipment Also has bands and cable pully system, weights. [facility] Medical History BMI 39.0-39.9,adult PONV (postoperative nausea and vomiting) Fatty liver Bronchitis Hypothyroidism GERD (gastroesophageal reflux disease) DJD (degenerative joint disease) Morbid obesity Surgical History S/P laparoscopic sleeve gastrectomy Hx of tubal ligation Hx of section Family History Mother Cancer Father Hypertension High cholesterol Brother No problems noted. Son No problems noted. Daughter No problems noted. Social History Household Members: Family Housing: House Are you a primary career representative to a significant other at home: No Do you presently have visiting nurse or other home services: No Alcohol intake: current Alcohol intake frequency: holidays/special occasions only Patient Tobacco Use Status: Never used Tobacco service: No Telehealth Telehealth Telehealth Platform: Telephone Location of provider rendering services: practice address Location of patient: other Patient Identification confirmed using: Name, : Yes Telehealth method: voice only Patient verbally consented to treatment: Yes Patient verbally consented to billing insurance company: Yes Patient informed of any privacy concerns related to visit: Yes Minutes spent on Phone/Video with Pt.: 12 Assessment & Plan Assessment & Plan (1) S/P laparoscopic sleeve gastrectomy: Code(s): Z98.84 - Bariatric surgery status Category: Surgical Plan: Doing very well. She has maintained a healthy and stable weight. Only recommendation is to decrease her shakes slightly as below. Additionally, discussed the importance of maintaining consistent exercise. She is scheduled for follow-up in the office for her 1 year postop appointment in July. She will text with any questions or concerns. premier protein powder 1.5 scoops in 8 oz almond milk x 2, 10-12, 4-6 pm 6 forks protein and 6 forks veg
[2024-05-18 08:19] VITALS: BMI 25.7
== END 2024-05-18 09:18 | disposition home or self-care (01) ==
LOC: HO.HBS 09:01
PROVIDERS: PCP Family Medicine; Visit Provider Physician Assistant Surgical
DX: Z71.3 Dietary counseling and surveillance (principal); Z90.3 Acquired absence of stomach [part of]; Z98.84 Bariatric surgery status
CPT/HCPCS: 99213

== ENCOUNTER → 2024-05-18 09:01 | Outpatient (BNVA) | payer OTHER, SELFPAY | PROVIDERS: PCP Family Medicine; Visit Provider Physician Assistant Surgical | DX: Z98.84 Bariatric surgery status (principal); E03.9 Hypothyroidism, unspecified; K76.0 Fatty (change of) liver, not elsewhere classified ==

== ENCOUNTER 2024-08-03 14:45 | Outpatient (AMB) | payer OTHER, SELFPAY ==
--- NOTE | 2024-08-03 09:04 | MHC.OFFVISWM ---
VS Expanded 08/03/24 09:05 Height 4 ft 11.5 in Weight 133 lb 8 oz BMI 26.5 Body Fat % 31.9 Fat Free Mass 91 Visceral Fat Rating 9 Body Water % 46.7 Muscle Mass/Score 85.6 Basal Metabolic Rate/Score 1,262 Intake Visit Reasons: (TV) PO LSG 07/16/23 Peace Officer Required: No Allergies amoxicillin Allergy (Mild, Verified 01/22/24 08:28) Hives Medication List - Last Reconciled 08/03/24 by SIMÓN Mckenzie amitriptyline 25 mg PO BEDTIME cetirizine (Zyrtec) 10 mg PO DAILY PRN levothyroxine 137 mcg PO BEDTIME HPI Comments Details: This?a?48?yo female who is s/p LSG without hiatal hernia repair on?07/16/23. Presents for 1 year post op visit. Weight today is 133.8 pounds, with a BMI of 26.5. There has been a 91.6 pound weight loss,(initial weight 225.4 pounds) since starting the program on 01/09/23 reflecting a 40.6% total body weight loss and a weight loss of 72.5 pounds since surgery (operative weight 206.3 pounds) reflecting a 35.1% TBWL since surgery. No complaints of nausea, emesis, abdominal pain or reflux. Reports infrequent but normal bowel movements every 3-4 days and uses stool softeners regularly. She states she is feeling very well. Over the past 2 weeks she has tried egg whites, yogurt, chicken, sushi, cheese. Present meal plan includes: premier protein powder 1.5 scoops in 8 oz almond milk x 2, 10-12, 4-6 pm 6 forks protein and 6 forks veg Drinking 60-70 oz water daily. ? Exercise routine includes: elliptical 250-300 tomasa 3-4 days per week. home equipment Also has bands and cable pully system, weights. Any post op complications: none YONI: never DM: never HTN: never Hyperlipidemia: never GERD:?0-5 scale ??0 = no symptoms ??1 = symptoms noticeable but not bothersome 2 =symptoms bothersome but not daily ? 3 = symptoms bothersome and daily 4 = symptoms affect daily activities 5 = symptoms are incapacitating, unable to do daily activities ? How bad is the heartburn: 0 ? Heartburn while lying down: 0 ? Heartburn when standing up: 0 ? Heartburn after meals: 0 ? Does heartburn change your diet: 0 ? Does heartburn wake you up from sleep: 0 ? Do you have difficulty swallowin ? Do you have pain with swallowin ? If you take medicine for your reflux, does this affect your daily life: 0 Satisfaction with present condition - satisfied or not satisfied: satisfied [facility] Medical History BMI 39.0-39.9,adult PONV (postoperative nausea and vomiting) Fatty liver Bronchitis Hypothyroidism GERD (gastroesophageal reflux disease) DJD (degenerative joint disease) Morbid obesity Surgical History S/P laparoscopic sleeve gastrectomy Hx of tubal ligation Hx of section Family History Mother Cancer Father Hypertension High cholesterol Brother No problems noted. Son No problems noted. Daughter No problems noted. Social History Household Members: Family Housing: House Are you a primary emergency care attendant to a significant other at home: No Do you presently have visiting nurse or other home services: No Alcohol intake: current Alcohol intake frequency: holidays/special occasions only Patient Tobacco Use Status: Never used Tobacco service: No Physical Exam Vital Signs: BMI result Body Mass Index 26.5 Assessment & Plan Assessment & Plan (1) S/P laparoscopic sleeve gastrectomy: Code(s): Z98.84 - Bariatric surgery status Category: Surgical Plan: Doing well overall. We will continue current meal plan and exercise plan. Check 1 year postop labs and return to clinic in 3 months, sooner if any questions or concerns Orders: Orders Complete Blood Count Auto Diff 08/03/24 E03.9 - Hypothyroidism, unspecified, K76.0 - Fatty (change of) liver, not elsewhere classified, Z98.84 - Bariatric surgery status Lipid Panel 08/03/24 E03.9 - Hypothyroidism, unspecified, K76.0 - Fatty (change of) liver, not elsewhere classified, Z98.84 - Bariatric surgery status IRON PROFILE 08/03/24 E03.9 - Hypothyroidism, unspecified, K76.0 - Fatty (change of) liver, not elsewhere classified, Z98.84 - Bariatric surgery status Vitamin B12 and Folate 08/03/24 E03.9 - Hypothyroidism, unspecified, K76.0 - Fatty (change of) liver, not elsewhere classified, Z98.84 - Bariatric surgery status C Reactive Protein 08/03/24 E03.9 - Hypothyroidism, unspecified, K76.0 - Fatty (change of) liver, not elsewhere classified, Z98.84 - Bariatric surgery status Vitamin B1 08/03/24 E03.9 - Hypothyroidism, unspecified, K76.0 - Fatty (change of) liver, not elsewhere classified, Z98.84 - Bariatric surgery status Vitamin A 08/03/24 E03. - Hypothyroidism, unspecified, K76.0 - Fatty (change of) liver, not elsewhere classified, Z98.84 - Bariatric surgery status Ferritin 08/03/24 E03.9 - Hypothyroidism, unspecified, K76.0 - Fatty (change of) liver, not elsewhere classified, Z98.84 - Bariatric surgery status Insulin 08/03/24 E03.9 - Hypothyroidism, unspecified, K76.0 - Fatty (change of) liver, not elsewhere classified, Z98.84 - Bariatric surgery status Hemoglobin A1c 08/03/24 E03.9 - Hypothyroidism, unspecified, K76.0 - Fatty (change of) liver, not elsewhere classified, Z98.84 - Bariatric surgery status Comprehensive Met. Panel 08/03/24 E03. - Hypothyroidism, unspecified, K76.0 - Fatty (change of) liver, not elsewhere classified, Z98.84 - Bariatric surgery status Zinc 08/03/24 E03.9 - Hypothyroidism, unspecified, K76.0 - Fatty (change of) liver, not elsewhere classified, Z98.84 - Bariatric surgery status TSH reflex Free T4 08/03/24 E03.9 - Hypothyroidism, unspecified, K76.0 - Fatty (change of) liver, not elsewhere classified, Z98.84 - Bariatric surgery status Vitamin D 25-OH Total 08/03/24 E03. - Hypothyroidism, unspecified, K76.0 - Fatty (change of) liver, not elsewhere classified, Z98.84 - Bariatric surgery status
[2024-08-03 09:05] VITALS: BMI 26.5
== END 2024-08-03 15:04 | disposition home or self-care (01) ==
LOC: HO.HBS 14:45
PROVIDERS: PCP Family Medicine; Visit Provider Physician Assistant Surgical
DX: E66.3 Overweight (principal); Z68.26 Body mass index [BMI] 26.0-26.9, adult; Z90.3 Acquired absence of stomach [part of]; Z98.84 Bariatric surgery status
CPT/HCPCS: 99213

== ENCOUNTER 2024-10-05 10:13 | Outpatient (AMB) | payer OTHER, SELFPAY ==
[2024-10-05 08:08] VITALS: BMI 26.5
--- NOTE | 2024-10-05 08:08 | A.OFFVIS_ITS ---
VS Expanded 10/05/24 08:08 Height 4 ft 11.5 in Weight 133 lb 8 oz BMI 26.5 Intake Visit Reasons: (TV) PO LSG 07/16/23 Allergies amoxicillin Allergy (Mild, Verified 01/22/24 08:28) Hives Medication List - Last Reconciled 10/05/24 by SIMÓN Mckenzie amitriptyline 25 mg PO BEDTIME cetirizine (Zyrtec) 10 mg PO DAILY PRN levothyroxine 125 mcg PO BEDTIME HPI Comments Details: This?a?49?yo female who is s/p LSG without hiatal hernia repair on?07/16/23. Presents for 1 year 2 month post op visit. Weight today is 133.8 pounds, with a BMI of 26.5. There has been a 91.6 pound weight loss,(initial weight 225.4 pounds) since starting the program on 01/09/23 reflecting a 40.6% total body weight loss and a weight loss of 72.5 pounds since surgery (operative weight 206.3 pounds) reflecting a 35.1% TBWL since surgery. No complaints of nausea, emesis, abdominal pain or reflux. Reports infrequent but normal bowel movements every 3-4 days and uses stool softeners regularly. She states she is feeling very well. She had 1 year labs done checked last Saturday, awaiting results. She did however have her levothyroxine dose decreased from 137-125 mcg daily Present meal plan includes: premier protein powder 1.5 scoops in 8 oz almond milk x 2, 10-12, 4-6 pm 6 forks protein and 6 forks veg Drinking 60-70 oz water daily. ? Exercise routine includes: 2-7 times since last visit. She has had to go take care of her daughter who has chronic illness. elliptical 250-300 tomasa 3-4 days per week. home equipment Also has bands and cable pully system, weights. [facility] Medical History BMI 39.0-39.9,adult PONV (postoperative nausea and vomiting) Fatty liver Bronchitis Hypothyroidism GERD (gastroesophageal reflux disease) DJD (degenerative joint disease) Morbid obesity Surgical History S/P laparoscopic sleeve gastrectomy Hx of tubal ligation Hx of section Family History Mother Cancer Father Hypertension High cholesterol Brother No problems noted. Son No problems noted. Daughter No problems noted. Social History Household Members: Family Housing: House Are you a primary healthcare facility administrator to a significant other at home: No Do you presently have visiting nurse or other home services: No Alcohol intake: current Alcohol intake frequency: holidays/special occasions only Patient Tobacco Use Status: Never used Tobacco service: No Assessment & Plan Assessment & Plan (1) S/P laparoscopic sleeve gastrectomy: Code(s): Z98.84 - Bariatric surgery status Category: Surgical Plan: She has maintained her weight over the last 2 months. She does recognize that she has been unable to exercise as much as she has been having to care for her chronically ill daughter. She will try to incorporate exercise as much as she can. Encouraged to continue to text weights and with any questions or concerns. We will await lab data as she had her labs done at an outside facility. We will have her follow-up in 2 months and then 2 months after that for her 18 month postop appointment.
--- OUTSIDE RECORDS SUMMARY | 2024-10-05 11:23 | XMS_ITS | Continuity of Care Document ---
Author Organization [facility] [address] [place] [address] Phone [phone] Care Team Providers Care Food Service Worker Hospital Name Role Phone Brandon Celeste M.D. 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 Amitriptyline [id number] Tablets Once nightly [facility] Biotin Extra Tvjlhvjr63lw Capsules Once daily Unknown Oawg767(65Fe) mg Tablets Once daily Unknown Vitamin C500mg Chewtabs 2 tabs daily Unknown Calcium 500/[id number] Chewtabs Once daily Unknown Multivitamin & Multimineral AdultsLiquid Chewable once daily Unknown Vital Signs Date Vital Result Comment 02/24/2024 9:42am BP Systolic 104 mmHg BP Diastolic 60 mmHg Heart Rate 63 /min Height 59.5 inches 4'11.50 Weight 132.25 lb BMI (Body Mass Index) 26.3 kg/m2 Medical Devices Description No Information Available Encounters Type Date Location Provider Dx Diagnosis Office Visit 02/24/2024 9:15a Main Office SIMÓN Hartmann E06.3 Autoimmune thyroiditis E03.9 Hypothyroidism, unsp ecified Assessments Date Code Description Provider 02/24/2024 E06.3 Autoimmune thyroiditis SIMÓN Harvey 02/24/2024 E03.9 Hypothyroidism, unspecified SIMÓN Hartmann Plan of Treatment 02/24/2024 - SIMÓN Hartmann* E06.3 Autoimmune thyroiditis * E03.9 Hypothyroidism, unspecified* New Labs:* TSH+Free T4, Ordered: 02/24/24 * Thyroid Peroxidase (Tpo) AB, Ordered: 02/24/24 Functional Status Description No Information Available Mental Status Description No Information Available Referrals Description No Information Available
== END 2024-10-05 10:15 | disposition home or self-care (01) ==
LOC: HO.HBS 10:13
PROVIDERS: PCP Family Medicine; Visit Provider Physician Assistant Surgical
DX: E66.3 Overweight (principal); Z68.26 Body mass index [BMI] 26.0-26.9, adult; Z90.3 Acquired absence of stomach [part of]; Z98.84 Bariatric surgery status
CPT/HCPCS: 99213

== ENCOUNTER → 2024-10-05 10:13 | Outpatient (BNVA) | payer OTHER, SELFPAY | PROVIDERS: PCP Family Medicine; Visit Provider Physician Assistant Surgical | DX: Z98.84 Bariatric surgery status (principal) ==

== ENCOUNTER 2024-12-07 09:01 | Outpatient (AMB) | payer OTHER, SELFPAY ==
--- NOTE | 2024-12-07 08:28 | MHC.OFFVISWM ---
VS Expanded 12/07/24 08:30 Height 4 ft 11.5 in Weight 125 lb 2 oz BMI 24.8 Body Fat % 29.4 Fat Free Mass 88.4 Visceral Fat Rating 8 Body Water % 48.4 Muscle Mass/Score 83.2 Basal Metabolic Rate/Score 1,226 Intake Visit Reasons: (TV) PO LSG 07/16/23 Allergies amoxicillin Allergy (Mild, Verified 01/22/24 08:28) Hives Medication List - Last Reconciled 12/07/24 by SIMÓN Mckenzie amitriptyline 25 mg PO BEDTIME cetirizine (Zyrtec) 10 mg PO DAILY PRN levothyroxine 125 mcg PO BEDTIME HPI Comments Details: This?a?49?yo female who is s/p LSG without hiatal hernia repair on?07/16/23. Presents for 1 year 4 month post op visit. Weight today is 125.2 pounds, with a BMI of 24.8. There has been a 100.2 pound weight loss,(initial weight 225.4 pounds) since starting the program on 01/09/23 reflecting a 44.4% total body weight loss and a weight loss of 81.1 pounds since surgery (operative weight 206.3 pounds) reflecting a 39.3% TBWL since surgery. No complaints of nausea, emesis, abdominal pain or reflux. Reports infrequent but normal bowel movements every 3-4 days and uses stool softeners regularly. She states she is feeling very well. She is doing very well. Had diarrhea, over the last week, improving, followed by PCP. Present meal plan includes: premier protein powder 1.5 scoops in 8 oz almond milk x 2, 10-12, 4-6 pm 6 forks protein and 6 forks veg Drinking 60-70 oz water daily. ? Exercise routine includes: 2-7 times since last visit. She has had to go take care of her daughter who has chronic illness. elliptical 250-300 tomasa 3-4 days per week. home equipment Also has bands and cable pully system, weights. [facility] Medical History BMI 39.0-39.9,adult PONV (postoperative nausea and vomiting) Fatty liver Bronchitis Hypothyroidism GERD (gastroesophageal reflux disease) DJD (degenerative joint disease) Morbid obesity Surgical History S/P laparoscopic sleeve gastrectomy Hx of tubal ligation Hx of section Family History Mother Cancer Father Hypertension High cholesterol Brother No problems noted. Son No problems noted. Daughter No problems noted. Social History Household Members: Family Housing: House Are you a primary pet care technician to a significant other at home: No Do you presently have visiting nurse or other home services: No Alcohol intake: current Alcohol intake frequency: holidays/special occasions only Patient Tobacco Use Status: Never used Tobacco service: No Telehealth Telehealth Telehealth Platform: Telephone Location of provider rendering services: practice address Location of patient: other Patient Identification confirmed using: Name, : Yes Telehealth method: voice only Patient verbally consented to treatment: Yes Patient verbally consented to billing insurance company: Yes Patient informed of any privacy concerns related to visit: Yes Minutes spent on Phone/Video with Pt.: 15 Assessment & Plan Assessment & Plan (1) S/P laparoscopic sleeve gastrectomy: Code(s): Z98.84 - Bariatric surgery status Category: Surgical Plan: Patient is doing very well from a weight loss standpoint. She did have loose stools over the last week which is slowly improving, followed by her primary care physician regarding this. She had lab work done. She is going to be starting a multivitamin with iron. She will continue her current meal plan. Increase exercise as she is able given her busy schedule taking care of her child who has been chronically ill. We will have her return to the office in approximately 2 months for her 18 month postop appointment. Regarding excess skin, this does affect her ADLs in such that she requires increased hygiene as well as difficulty with clothing fitting. She has not developed any rashes as of yet as she has been very diligent about her skin hygiene. We will continue to follow clinically.
[2024-12-07 08:30] VITALS: BMI 24.8
--- OUTSIDE RECORDS SUMMARY | 2024-12-07 09:48 | XMS_ITS | Encounter Summary ---
Author Organization [facility] Address [id number] [place] [id number] Care Team Providers Care Outside Food Server Name Role Phone Brandon Celeste DO Primary Care Provider [phone] Reason for Visit * Reason Onset Date Comments appointment 12/03/2024 Encounter Details Date Type Department Care Team (Late st Contact Info) Description 12/03/2024 Telephone Gastroenterology - [place] [address] [place] [id number] Margaux Redd MD [address] [place] [address] appointment Social History Tobacco Use Types Packs/Day Years Used Date Smoking Tobacco: Never Assessed Comments Unknown Sex and Gender Information Value Date Recorded Sex Assigned at Not on file Legal Sex Female 10:17 AM EST Gender Identity Not on file Sexual Orientation Not on file documented as of this encounter Progress Notes * Polly Leon - 12/03/2024 10:31 AM EDT Records received from [facility], consult for iron deficiency anemia, colonoscopy h/o gastric sleeve. Left message & placed call log in folder. Records scanned to patient's chart. documented in this encounter Plan of Treatment Not on file documented as of this encounter Visit Diagnoses Not on filedocumented in this encounter Care Teams Outside Food Server Relationship Specialty Start Date End Date Brandon Celeste DO [address] [place], [place] PCP - General Family Medicine 12/03/24 documented as of this encounter
--- OUTSIDE RECORDS SUMMARY | 2024-12-07 09:48 | XMS_ITS | Continuity of Care Document ---
Author Organization [facility] [address] [place] [address] Phone [phone] Care Team Providers Care Bus Washer Name Role Phone Brandon Celeste M.D. 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 Amitriptyline CFF99yw Tablets Once nightly [facility] Biotin Extra Uhofzxbz34gm Capsules Once daily Unknown Mtuv466(65Fe) mg Tablets Once daily Unknown Vitamin C500mg Chewtabs 2 tabs daily Unknown Calcium 500/[id number] Chewtabs Once daily Unknown Multivitamin & Multimineral [...]
--- OUTSIDE RECORDS SUMMARY | 2024-12-07 09:48 | XMS_ITS | Clinical Summary ---
Author Organization [address] [facility] Address [address] [place] [address] Phone Care Team Providers Care Bisque Cleaner Name Role Phone Brandon Celeste Primary Care Provider [phone] Encounters Date Type Department Care Team Description 12/03/2024 Telephone Gastroenterology [facility] [address] [facility] [address] [address] Magraux Redd MD appointment from Last 3 Months Social History Tobacco Use Types Packs/Day Years Used Date Smoking Tobacco: Never Assessed Comments Unknown Sex and Gender Information Value Date Recorded Sex Assigned at Not on file Legal Sex Female 10:17 AM EST Gender Identity Not on file Sexual Orientation Not on file Plan of Treatment Health Maintenance Due Date Last Done Comments Breast Cancer Screening 1977 DTaP,Tdap,and Td Vaccines (1 - Tdap) 1996 Hepatitis B Vaccines (1 of 3 - 19+ 3-dose series) 1996 Cervical Cancer Screening: P ap Smear 1998 COVID-19 Vaccine (2023-2 5 season) 2024 Colorectal Cancer Screening: Colonoscopy 12/04/2024 Depression Screening 12/04/2024 HIV Screening 12/04/2024 Hepatitis C Screening 12/04/2024 Social Influencers of Health Screening 12/04/2024 Influenza Vaccine (Season Ended) 2025 HIB Vaccines Aged Out No longer eligi ble based on patient's age to complete this topic HPV Vaccines Aged Out No longer eligi ble based on patient's age to complete this topic Hepatitis A Vaccines Aged Out No long er eligible based on patient's age to complete this topic IPV Vaccines Aged Out No longer eligi ble based on patient's age to complete this topic MMR Vaccines Aged Out No longer eligi ble based on patient's age to complete this topic Meningococcal ACWY Vaccine Aged Out N o longer eligible based on patient's age to complete this topic Meningococcal B Vaccine Aged Out No l onger eligible based on patient's age to complete this topic Pneumococcal Vaccine: Pediat rics (0 to 5 Years) and At-Risk Patients (6 to 64 Years) Aged Out No longer eligible b ased on patient's age to complete this topic RSV Immunization Patients Un kalen 20 months Aged Out No longer eligible b ased on patient's age to complete this topic Varicella Vaccines Aged Out No longer eligible based on patient's age to complete this topic Insurance Care Teams Bisque Cleaner Relationship Specialty Start Date End Date Brandon Celeste DO [address] [place] [address] PCP - General Family Medicine 12/03/24
== END 2024-12-07 09:26 | disposition home or self-care (01) ==
LOC: HO.HBS 09:01
PROVIDERS: PCP Family Medicine; Visit Provider Physician Assistant Surgical
DX: Z71.3 Dietary counseling and surveillance (principal); Z98.84 Bariatric surgery status
CPT/HCPCS: 99213

== ENCOUNTER → 2024-12-07 09:01 | Outpatient (BNVA) | payer OTHER, SELFPAY | PROVIDERS: PCP Family Medicine; Visit Provider Physician Assistant Surgical ==

== ENCOUNTER 2025-02-01 09:16 | Outpatient (AMB) | payer OTHER, SELFPAY ==
--- NOTE | 2025-02-01 08:11 | A.OFFVIS_ITS ---
VS Expanded 02/01/25 08:12 Height 4 ft 11.5 in Weight 129 lb 2 oz BMI 25.6 Body Fat % 30.6 Fat Free Mass 89.8 Visceral Fat Rating 8 Body Water % 47.6 Muscle Mass/Score 84.4 Basal Metabolic Rate/Score 1,255 Intake Visit Reasons: (TV) PO LSG 07/16/23 Allergies amoxicillin Allergy (Mild, Verified 01/22/24 08:28) Hives HPI Comments Details: This?a?49?yo female who is s/p LSG without hiatal hernia repair on?07/16/23. Presents for 1 year 6 month post op visit. Weight today is 129.2 pounds, with a BMI of 25.6. There has been a 96.2 pound weight loss,(initial weight 225.4 pounds) since starting the program on 01/09/23 reflecting a 42.6% total body weight loss and a weight loss of 77.1 pounds since surgery (operative weight 206.3 pounds) reflecting a 37.3% TBWL since surgery. No complaints of nausea, emesis, abdominal pain or reflux. Reports infrequent but normal bowel movements every 3-4 days and uses stool softeners regularly. She states she is feeling very well. She is doing very well. She had an occasional pain in the left rib cage. No constipation although some diarrhea about 10 days ago. Present meal plan includes: premier protein powder 1.5 scoops in 8 oz almond milk x 2, 10-12, 4-6 pm 6 forks protein and 6 forks veg Drinking 60-70 oz water daily. ? Exercise routine includes: not enough. none in the last 4-5 weeks. elliptical at home. Any post op complications: none YONI: never DM: never HTN: never Hyperlipidemia: never GERD:?0-5 scale ??0 = no symptoms ??1 = symptoms noticeable but not bothersome 2 =symptoms bothersome but not daily ? 3 = symptoms bothersome and daily 4 = symptoms affect daily activities 5 = symptoms are incapacitating, unable to do daily activities ? How bad is the heartburn: 0 ? Heartburn while lying down: 0 ? Heartburn when standing up: 0 ? Heartburn after meals: 0 ? Does heartburn change your diet: 0 ? Does heartburn wake you up from sleep: 0 ? Do you have difficulty swallowin ? Do you have pain with swallowin ? If you take medicine for your reflux, does this affect your daily life: 0 Satisfaction with present condition - satisfied or not satisfied: satisfied [facility] Medical History BMI 39.0-39.9,adult PONV (postoperative nausea and vomiting) Fatty liver Bronchitis Hypothyroidism GERD (gastroesophageal reflux disease) DJD (degenerative joint disease) Morbid obesity Surgical History S/P laparoscopic sleeve gastrectomy Hx of tubal ligation Hx of section Family History Mother Cancer Father Hypertension High cholesterol Brother No problems noted. Son No problems noted. Daughter No problems noted. Social History Household Members: Family Housing: House Are you a primary hemodialysis patient care specialist to a significant other at home: No Do you presently have visiting nurse or other home services: No Alcohol intake: current Alcohol intake frequency: holidays/special occasions only Patient Tobacco Use Status: Never used Tobacco service: No Telehealth Telehealth Telehealth Platform: Telephone Location of provider rendering services: practice address Location of patient: other Patient Identification confirmed using: Name, : Yes Telehealth method: voice only Patient verbally consented to treatment: Yes Patient verbally consented to billing insurance company: Yes Patient informed of any privacy concerns related to visit: Yes Minutes spent on Phone/Video with Pt.: 12 Assessment & Plan Assessment & Plan (1) S/P laparoscopic sleeve gastrectomy: Code(s): Z98.84 - Bariatric surgery status Category: Surgical Plan: Patient had labs done in September which were normal, she additionally had labs done through her primary care physician in November and she reports there were no issues. Discussed the importance of exercise as she has not been doing this. She is going to move her elliptical machine from her son's room in the basement up to her bedroom. Continue current meal plan as she is doing. Offered return appointment in 6 weeks but she would prefer to follow-up in approximately 3 months. Encouraged to text weekly with her weight and with any questions or concerns.
[2025-02-01 08:12] VITALS: BMI 25.6
--- OUTSIDE RECORDS SUMMARY | 2025-02-01 10:01 | XMS_ITS | Clinical Summary ---
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
== END 2025-02-01 09:21 | disposition home or self-care (01) ==
LOC: HO.HBS 09:16
PROVIDERS: PCP Family Medicine; Visit Provider Physician Assistant Surgical
DX: E66.3 Overweight (principal); Z68.25 Body mass index [BMI] 25.0-25.9, adult; Z90.3 Acquired absence of stomach [part of]; Z98.84 Bariatric surgery status
CPT/HCPCS: 99213